=== PATIENT | female | born 1985 | race African-American/Black ===

== ENCOUNTER 2019-10-14 17:31 | Emergency (ER) | payer MEDICARE ==
[2019-10-14] MEDS ORDERED: HYDROcodone/Acetaminophen 5/325 mg Tablet ONE (18:04)
[2019-10-14] MEDS ORDERED: Ibuprofen 200 MG TAB ONE (18:54)
== END 2019-10-14 18:30 | disposition home or self-care (01) ==
LOC: ERS 17:31
DX: L03.011 Cellulitis of right finger (principal); L02.415 Cutaneous abscess of right lower limb; F32.9 Major depressive disorder, single episode, unspecified; F20.9 Schizophrenia, unspecified; F17.210 Nicotine dependence, cigarettes, uncomplicated; B20 Human immunodeficiency virus [HIV] disease
CPT/HCPCS: 10061; 87070; 87077; 87186; 87205

== ENCOUNTER 2020-02-02 21:38 | Inpatient (IN) | payer MEDICARE, OTHER ==
[~2020-02-02 21:38] MED LIST: Iopamidol-370 76% 500 ML 1 ML ONE
[2020-02-02] MEDS ORDERED: Acetaminophen 500 MG TAB ONE (22:01)
[2020-02-02] MEDS ORDERED: Ondansetron PF 4 MG/2 ML Vial ONE (22:15)
[2020-02-02] MEDS ORDERED: cefTRIAXone\\ROCEPHIN 1 GM VIAL ONE (22:27)
[2020-02-02] MEDS ORDERED: Azithromycin 500 MG VIAL ONE (22:27)
[2020-02-02 22:36] LABS: Hemoglobin 10.7 g/dL (12.0-16.0); Mean Corpuscular Hemoglobin 28.4 pg (27.0-31.0); Mean Corpuscular Volume 88.6 fL (78.0-98.0); Mean Platelet Volume 9.3 fL (7.4-10.4); Platelet Count 286 thou/uL (130-400); RBC Distribution Width 14.2 % (11.5-14.5); Red Blood Cell (RBC) Count 3.76 mill/uL (4.20-5.40); White Blood Cell (WBC) Count 9.3 thou/uL (4.8-10.8)
--- NOTE | 2020-02-02 22:41 | RAD ---
Chest one view HISTORY: Chest pain. Cough. COMPARISON: 09/22/2014. FINDINGS: Cardiac silhouette and pulmonary vasculature are unremarkable. Mediastinum is midline. No lobar consolidation or evidence of pneumothorax. IMPRESSION : No abnormalities are demonstrated.
[2020-02-02 22:42] LABS: ALT (SGPT) 23 U/L (8-55); AST (SGOT) 62 U/L (5-34); Albumin 3.5 g/dL (3.5-5.0); Alkaline Phosphatase 51 U/L (40-110); Anion Gap 14 mmol/L (10-20); BUN (Urea Nitrogen) 12 mg/dL (7.0-18.7); Bilirubin, Total 0.5 mg/dL (0.2-1.2); Calc. Creatinine Clearance 0 mL/min (70-130); Calcium 8.9 mg/dL (7.8-10.44); Carbon Dioxide 26 mmol/L (22-29); Chloride 100 mmol/L (98-107); Estimated GFR-MDRD 75; Globulin 4.5 g/dL (2.4-3.5); Glucose 87 mg/dL (70-105); Lipase 90 U/L (8-78); Potassium 3.8 mmol/L (3.5-5.1); Sodium 136 mmol/L (136-145)
[2020-02-02 22:43] LABS: Bacteria/HPF 4+ HPF (None Seen); Bilirubin Negative (Negative); Blood, Urine Trace (Negative); Clarity Turbid (Clear); Glucose, Urine (Dipstick) Normal (Negative); Ketone, Urine Negative (Negative); Leukocyte 500 Leu/uL (Negative); Nitrite 2+ (Negative); Protein, Urine (Dipstick) 50 mg/dL (Neg-Trace); RBC/HPF 0-3 HPF (0-3); Specific Gravity, Urine 1.014 (1.002-1.036); Squamous Epithelial 0-3 HPF (0-3); Urobilinogen Normal mg/dL (Less than 2); WBC/HPF Greater than 50 HPF (0-3)
[2020-02-02 22:44] LABS: Pregnancy Test - Urine (BHCG) Negative (Negative); Specific Gravity 1.014 (1.002-1.036)
[2020-02-02 22:45] LABS: Pregu Control Background? CLEAR/WHITE (CLR/WHITE); Pregu Control Bar Appear? YES (CONTROL BAR)
[2020-02-02 22:54] LABS: Band 5 % (5-11); Lymphocytes 8 % (21-51); MDiff Complete? YES; Monocytes 9 % (0-10); Neutrophil 77 % (42-75); Platelet Morphology Comment Appears Adequate; RBC Morphology Normal; Reactive Lymphocytes 1 % (0-10)
--- NOTE | 2020-02-02 22:59 | CT ---
CT abdomen and pelvis with IV contrast HISTORY: Abdomen pain. COVID positive. FINDINGS: Minimal bilateral pleural fluid at the lung bases. No focal infiltrate. The liver, spleen, kidneys, adrenal glands, and pancreas have a normal CT appearance on today's exam. Urinary bladder is decompressed. No evidence of bowel obstruction or inflammation. Postoperative changes of lower lumbar spine are debi arent. IMPRESSION : Minimal bilateral pleural fluid. No acute abdominal abnormalities are demonstrated.
[2020-02-02] MEDS ORDERED: Ibuprofen 800 MG TAB ONE (23:23)
[2020-02-02] MEDS ORDERED: Morphine 4 MG/ML VIAL ONE (23:23)
[2020-02-03] MEDS ORDERED: Dexamethasone 10 MG/ML VIAL ONE (00:33)
[2020-02-03] MEDS ORDERED: Sulfameth/Trimethoprim DS 800-160mg TAB PO SCH ×2 (00:45→09:00)
[2020-02-03] MEDS ORDERED: Midazolam HCl 2 mg/2 ml Vial ONE (01:09)
[2020-02-03] MEDS ORDERED: Norepinephrine 8 MG/0.9% NS 250 ML ONE (01:09)
[2020-02-03] MEDS ORDERED: Ondansetron PF 4 MG/2 ML Vial IVP PRN (01:12)
[2020-02-03] MEDS ORDERED: Acetaminophen 325 MG TAB PO PRN (01:12)
[2020-02-03] MEDS ORDERED: Norepinephrine 8 MG/0.9% NS 250 ML IVPB SCH (01:45)
[2020-02-03 02:42] VITALS: BMI 23.8
--- NOTE | 2020-02-03 04:02 | HP ---
This is Dionna Plaza, SITE COORDINATOR dictating a report for SILVINA CHANDLER. PRIMARY CARE PHYSICIAN: Dr. Muñiz, Dr. Armando. She reports she has not seen Dr. Armando in at least a year. HISTORY OF PRESENT ILLNESS: Ms. Gonzales is a 34-year-old female with a past medical history of HIV, who presented to the emergency room today with chest tightness, abdominal pain, decreased p.o. intake. The patient was seen here on 01/23, had a COVID test due to a temperature of a 103. Reports that she heard back several days later that it was negative. She has had some nausea and some vomiting. Her abdominal pain has been intermittent, diffuse, and crampy. She said nothing she has done improves or worsens the pain, but has not really tried much. She has a dry nonproductive cough and pain that is located on the sides of her sternum when she takes a deep breath. She reports that she has been drinking less over the last two days and really has not been able to eat much. She is a tobacco smoker. She does endorse fever and chills. Reports some rhinorrhea, pleuritic chest pain, incontinence. Emergency room evaluation showed that she had a UTI nitrate positive. Chemistry just showed an AST elevation at 62, lipase at 90. White blood cell count 9.3, hemoglobin 10.7, hematocrit is 33.3. She had a CT of her abdomen and pelvis which showed minimal bilateral pleural effusion, but no acute findings. Chest x-ray shows no abnormalities. She was admitted initially to medical for pyelonephritis, possible pneumonia, possible COVID which was retested. After she was admitted to the hospitalist service, the nurses noted that her blood pressure was trending down. She was given a total of 4 L of fluid. They decided to start a Levophed drip peripherally to see if they can get her blood pressure up and then changed her admission from medical to ICU. By the time she was transferred up to CCU, her blood pressure was back up to 109/69. She was given 4 L of fluid Bactrim p.o., dexamethasone 10 mg, morphine, azithromycin, ibuprofen, Rocephin, Zofran, and Tylenol. PAST MEDICAL HISTORY: HIV, bipolar, schizophrenia, depression, seizures. PAST SURGICAL HISTORY: Bilateral tubal in 2007. She has had a pilonidal cystectomy, surgery on her lumbar spine. SOCIAL HISTORY: She smokes about half a pack a day. Denies any alcohol or drug use. FAMILY HISTORY: Positive for hypertension. REVIEW OF SYSTEMS: The patient reports fever. She reports chills. She reports some rhinorrhea. She reports pleuritic chest pain, shortness of breath. Reports a cough. Reports diffuse abdominal pain, nausea, gagging/vomiting. Denies dysuria, but reports incontinence. No edema. Endorses some paresthesias since her back surgery in 2003. All systems are reviewed and are negative unless mentioned above or in the HPI. ALLERGIES: HALDOL, LURASIDONE, RISPERIDONE, TRAZODONE, ZIPRASIDONE. CURRENT MEDICATIONS: Hydroxyzine 10 mg p.o. once a day at night for sleep. PHYSICAL EXAMINATION: VITAL SIGNS: Blood pressure 109/69, pulse is 66, respiratory rate is 20, temperature is 97.7, pO2 sats are 98% on room air. GENERAL: The patient is alert and oriented. She is nontoxic appearing. HEAD: Atraumatic and normocephalic. EYES: Pupils are equally round and reactive. Eyelids are normal to inspection. ENT: Mouth exam is normal. Mucous membranes are moist. NECK: Normal range of motion. Trachea is midline. RESPIRATORY: Breath sounds are clear. Chest expansion is equal. CARDIOVASCULAR: Regular rate and rhythm. Heart sounds are normal. UPPER EXTREMITIES: Normal inspection. Normal range of motion. LOWER EXTREMITIES: Normal range of motion. Motor strength is normal. Pedal pulses are normal. NEURO: She is awake and alert and moving all extremities. SKIN: Warm and dry. Normal in color. PSYCH: She has a flat affect, but she is awake and alert. ASSESSMENT AND PLAN: 1. Sepsis, likely source pyelonephritis. COVID test has been redone. The first one she had done on the 10th about 10 days ago came back negative. She has a history of being HIV positive, has not been on her medication for over a year, has not seen Dr. Armando in over a year. ED physician was worried about possible pneumonia, although it was negative on the x-ray. After fluid resuscitation, it might present itself. She was hypotensive in the emergency room. She received 4 L of normal saline and blood pressure rebounded quite nicely. She was given azithromycin, Rocephin, and Bactrim in the emergency room and we will continue this. 2. History of HIV and not been on her medications. We have asked Dr. Armando to consult for the HIV infection and also possible COVID. 3. History of schizophrenia, depression, is not on any medication. She would be a candidate for an outpatient [facility] screening. 4. Deep venous thrombosis and gastrointestinal prophylaxis started. 5. Dr. Chandler will see the patient as well. 6. Case discussed in length with Dr. Chandler, who agrees with plan. 7. Urine culture and blood cultures have been obtained, see #1. 8. Smoking cessation counseling offered. 9. Hospital course depended on clinical findings. Job ID: [id number]
[2020-02-03 04:57] LABS: Hemoglobin 8.9 g/dL (12.0-16.0); Mean Corpuscular HGB CONC 31.5 g/dL (32.0-36.0); Mean Corpuscular Hemoglobin 27.8 pg (27.0-31.0); Mean Platelet Volume 9.9 fL (7.4-10.4); Platelet Count 252 thou/uL (130-400); White Blood Cell (WBC) Count 7.1 thou/uL (4.8-10.8)
[2020-02-03 05:22] LABS: Band 7 % (5-11); Lymphocytes 7 % (21-51); MDiff Complete? YES; Monocytes 5 % (0-10); Neutrophil 81 % (42-75); Platelet Morphology Comment Appears Adequate
[2020-02-03] MEDS: Sodium Chloride 0.9% 1,000 ML IV SCH ×3 (05:35→20:43)
[2020-02-03 06:08] LABS: ALT (SGPT) 16 U/L (8-55); AST (SGOT) 37 U/L (5-34); Albumin 2.7 g/dL (3.5-5.0); Alkaline Phosphatase 42 U/L (40-110); Anion Gap 12 mmol/L (10-20); BUN (Urea Nitrogen) 11 mg/dL (7.0-18.7); Bilirubin, Total 0.5 mg/dL (0.2-1.2); Calc. Creatinine Clearance 111 mL/min (70-130); Calcium 7.5 mg/dL (7.8-10.44); Carbon Dioxide 19 mmol/L (22-29); Chloride 111 mmol/L (98-107); Estimated GFR-MDRD Greater than 90; Globulin 3.2 g/dL (2.4-3.5); Glucose 109 mg/dL (70-105); Potassium 3.1 mmol/L (3.5-5.1); Protein, Total 5.9 g/dL (6.0-8.3); Sodium 139 mmol/L (136-145)
[2020-02-03] MEDS ORDERED: MERREM IVPB PRN (08:02)
[2020-02-03] MEDS ORDERED: VANCOMYCIN IVPB PRN (08:02)
--- NOTE | 2020-02-03 08:10 | CON ---
DATE OF CONSULTATION: 02/03/2020 REASON FOR CONSULTATION: Sepsis. HISTORY OF PRESENT ILLNESS: The patient is a 34-year-old female referred to our group by the hospitalist for evaluation of sepsis since she is requiring Levophed. She was brought to the emergency room last night with a 2 week complaint of chest tightness, nausea, vomiting, and diarrhea. She was found to have a urinary tract infection. She was initially going to be sent to the floor, but because of marginal blood pressure, she has been sent here, is on a low-dose Levophed drip. PAST MEDICAL HISTORY: 1. HIV, she has been off her medications for at least a year. 2. Bipolar disorder. 3. Schizophrenia. 4. Depression. 5. Seizure. PAST SURGICAL HISTORY: 1. Bilateral tubal ligation. 2. Pilonidal cyst removal. 3. Lumbar spine surgery. SOCIAL HISTORY: Smokes about half pack per day. Denies alcohol or illicit drug use. FAMILY MEDICAL HISTORY: Hypertension. MEDICATIONS: Prior to admission, none. ALLERGIES: HALDOL, LURASIDONE, RISPERIDONE, TRAZODONE, ZIPRASIDONE. REVIEW OF SYSTEMS: The patient reports subjective fever, chills, shortness of breath, cough. It should be noted, had negative COVID test twice in the last 2 weeks including last night. PHYSICAL EXAMINATION: VITAL SIGNS: Temperature 98.1, pulse 54, blood pressure 105/63, O2 saturation 99%. GENERAL: She has a macular rash along her hairline along the folds of her nose and around her lips. HEENT: Also remarkable for a thrush type exudate on her tongue. NECK: Without palpable adenopathy or JVD. LUNGS: Clear without wheezing or rhonchi. CARDIAC: Rhythm is generally sinus but does see episodes of sinus bradycardia. ABDOMEN: Diffuse mild tenderness without rebound. No hepatosplenomegaly. EXTREMITIES: No clubbing, cyanosis, or edema. NEUROLOGIC: Grossly intact throughout. LABORATORY DATA: White blood cell count 7.1, hematocrit 28.2, and platelet count 252, with 81% neutrophils, 7% bands. Sodium 139, potassium 3.1, chloride 111, CO2 of 19, BUN 11, creatinine 0.7, glucose 109. Ferritin 1100. AST 37, ALT 16. Urinalysis showed greater than 50 white blood cells. COVID test was negative. Chest x-ray showed no mass, effusion, or infiltrate. ASSESSMENT: 1. Urosepsis. 2. HIV-unknown severity. 3. Abdominal symptoms suggestive of possible gastroenteritis. PLAN: The patient basically needs to be hydrated. I would wean the Levophed drip off quickly. She has been placed on azithromycin, ceftriaxone, and Bactrim. Dr. Armando has been consulted for antibiotics concern. I will add Protonix for GI symptoms. Once the patient is off Levophed, she can be transferred to the floor. Job ID: [id number]
[2020-02-03] MEDS ORDERED: Prevnar 13-Val Conj/PF 0.5 ML SYRINGE IM ONE (09:00)
[2020-02-03] MEDS: Senokot S 8.6-50 MG TAB PO SCH ×2 (09:52→20:42)
[2020-02-03] MEDS: MEROPENEM 1 GM/50 ML 1 GM in Premix Bag 1 BAG IVPB SCH ×2 (09:53→17:03)
[2020-02-03] MEDS: Pantoprazole 40 MG VIAL IVP SCH (09:53)
[2020-02-03] MEDS: Vancomycin HCl 1.25 GM in Sodium Chloride 0.9% 250 ML 250 ML IVPB SCH ×2 (09:53→17:02)
--- NOTE | 2020-02-03 13:47 | CON ---
DATE OF CONSULTATION: 02/03/2020 REASON FOR CONSULTATION: Abdominal pain, fever, and chest pain. HISTORY OF PRESENT ILLNESS: A 34-year-old known to me from multiple prior visits, both here as well as in the clinic, who has a longstanding history of advanced immunosuppression associated with HIV infection. I think she has schizophrenia or schizoaffective disorder. She from time to time will stop taking her medications for HIV and deteriorate her immune function and developed illness. The last time I had seen her was about a year ago and she had CD4 cell count, which has markedly improved to 237 on Biktarvy, but I have not seen her since. She had been living with her boyfriend and she had not been taking her medications. She denied having used any cocaine or methamphetamine or other drug. No alcoholic beverage use. She does smoke from time to time intermittently. So, over the past few weeks, she started feeling ill and went to live with her parents, still not taking any of her medications and presented to the emergency room on the because of chest tightness, abdominal pain, some nausea, and some vomiting. No bleeding. No headaches. No visual symptoms, sore throat, odynophagia, or dysphagia. No back pain. Never had dysuria or hematuria. Had some diarrhea. No joint symptoms or neurological symptoms. MEDICAL HISTORY: 1. Longstanding advanced HIV infection with erratic adherence to antiretroviral therapy. The last time I checked was in December last year and it was 237, which is probably one of the highest she ever had. She is doing quite well then, but her social and life circumstances will change from time to time and she will stop taking medication, disappeared from clinic and get sick just like today. 2. She has had a history of back surgery. 3. Tubal ligation. SOCIAL HISTORY: Smokes intermittently. No drug use. Family is in town and she will sometimes live with her boyfriend and sometimes live with family. ALLERGIES: HALDOL, LURASIDONE WITH RASH, RISPERDAL WITH RASH, TRAZODONE WITH HIVES, AND ZIPRASIDONE WITH RASH. REPORTED MEDICATIONS: Hydroxyzine. PHYSICAL EXAMINATION: VITAL SIGNS: Temperature 97.9 and in the emergency room she was 103, O2 saturations were 97 on room air in the emergency room, BP 98/59, and pulse 104. SKIN: Not remarkable. No lymphadenopathy. HEENT: Ocular movements conjugate. Oral cavity normal. No thrush. NECK: Supple. No jugular vein distention. LUNGS: Symmetric, clear breath sounds. HEART: S1 and S2. Regular rate without murmurs. No S3 or S4. ABDOMEN: Bzcz-in-uwgertwawq tender in the left lower quadrant and right upper quadrant. This is on percussion and on palpation. NEUROLOGIC: She is awake. She has a very flat affect, which tells me that she has not been taking her psychiatric medications, but when I last saw her, she was very bright and appeared completely normal, that was about a year ago. EXTREMITIES: She moves extremities equally. Plantar responses are flexor. LABORATORY DATA: White cell count now is 9.3 and 7.1, hemoglobin 8.9, MCV 88, platelets 252, and 81% neutrophils. D-dimer 2.2. Sodium 139 and creatinine 0.73. Ferritin 1100. AST 37, ALT 16, albumin 2.7. Folate 4.7. She had an abdomen and pelvis CT scan, minimal bilateral pleural fluid, no acute abdominal abnormalities demonstrated. This was an IV contrast study. She had a COVID test, which was negative. A chest x-ray with no abnormalities demonstrated. ASSESSMENT: Longstanding human immunodeficiency virus infection with advanced immunosuppression until last time when I saw her, CD4 had peaked at 237, which is the highest she has had in a long time. Now, she has had deterioration of her psychiatric condition, probably due to lack of adherence to her medication plus her social circumstances. She had been living with her boyfriend, which in the past I have noted that when anytime she is with him she kind of decompensates. Now, she has had interruption of antiretroviral therapy and I expect her CD4 cell count to be much lower than last year. The estimate for CD4 cell count now is less than 200. She has an abnormal urinalysis, so the differential diagnosis is a urinary tract infection or an opportunistic infectious process including possibility of Clostridium difficile colitis, cytomegalovirus, histoplasmosis, Mycobacterium avium complex infection. Pneumocystis appears to be less likely. We will start antiretroviral therapy. Continue antimicrobials as currently. Monitor blood cultures. Await on the results of the CD4 cell count. The viral load is going to be high as expected. Submit assays for the opportunistic processes mentioned. Job ID: [id number]
[2020-02-03] MEDS ORDERED: Sodium Chloride 0.9% 1,000 ML IV SCH (16:45)
--- NOTE | 2020-02-03 18:14 | PDOC.EVN ---
Event Note - Event Note Event Note: inherited patient this morning. feeling well and has no complaints. Borderline hypotensive after weaned off levophed. bolus NS, escalated antibiotics for complicated UTI in critically ill to cover MRSA and ESBL pending cultures. ID onboard
[2020-02-03] MEDS: Raltegravir Potassium 400 MG TAB PO SCH (20:42)
[2020-02-03] MEDS ORDERED: Azithromycin 500 MG in Sodium Chloride 0.9% 250 ML 250 ML IVPB SCH (22:00)
[2020-02-03] MEDS ORDERED: cefTRIAXone\\ROCEPHIN 2 GM in Sodium Chloride 0.9% 100 ML IVPB SCH (23:00)
[2020-02-04] MEDS: Vancomycin HCl 1.25 GM in Sodium Chloride 0.9% 250 ML 250 ML IVPB SCH ×2 (01:45→10:56)
[2020-02-04] MEDS: MEROPENEM 1 GM/50 ML 1 GM in Premix Bag 1 BAG IVPB SCH ×3 (01:45→19:40)
[2020-02-04 04:09] LABS: Anion Gap 9 mmol/L (10-20); BUN (Urea Nitrogen) 8 mg/dL (7.0-18.7); Calc. Creatinine Clearance 131 mL/min (70-130); Calcium 8.1 mg/dL (7.8-10.44); Carbon Dioxide 18 mmol/L (22-29); Chloride 116 mmol/L (98-107); Estimated GFR-MDRD Greater than 90; Glucose 147 mg/dL (70-105); Magnesium 1.7 mg/dL (1.6-2.6); Potassium 3.7 mmol/L (3.5-5.1); Sodium 139 mmol/L (136-145)
--- NOTE | 2020-02-04 07:56 | PRG ---
DATE OF SERVICE: 02/04/2020 SUBJECTIVE: She was transferred from the ICU to the [facility] yesterday. Has done well overnight. OBJECTIVE: VITAL SIGNS: Temperature 96.6, pulse generally in the 40s to 50s, blood pressure 120/70, O2 saturation 100%. HEENT: Unremarkable except for the fungal appearing areas on the skin. NECK: No adenopathy or JVD. CHEST: Clear. CARDIAC: S1, S2. Slightly bradycardic. ABDOMEN: Soft. EXTREMITIES: No edema. LABORATORY DATA: Sodium 139, potassium 3.7, chloride 116, CO2 of 18, BUN 8, creatinine 0.6, glucose 147. Cultures, urine is growing out E coli which is sensitive to everything except for ampicillin. ASSESSMENT: 1. Urosepsis. 2. HIV. PLAN: Antimicrobial coverage will be dictated by Dr. Armando. The bradycardia is somewhat concerning and may need to be further addressed by Cardiology. The patient is stable for transfer to telemetry. Job ID: [id number]
[2020-02-04 07:57] LABS: Phosphorus 2.1 mg/dL (2.3-4.7)
[2020-02-04] MEDS: Senokot S 8.6-50 MG TAB PO SCH ×2 (08:39→20:21)
[2020-02-04] MEDS: Pantoprazole 40 MG VIAL IVP SCH (08:39)
[2020-02-04] MEDS: Sodium Chloride 0.9% 1,000 ML IV SCH ×3 (08:39→21:57)
[2020-02-04] MEDS: Emtricitabine/Tenofovir 200-300 MG TAB PO SCH (08:40)
[2020-02-04] MEDS: Raltegravir Potassium 400 MG TAB PO SCH ×2 (08:40→20:21)
[2020-02-04 10:22] LABS: Vancomycin, Trough 17.4 ug/mL
[2020-02-04 17:37] LABS: Absolute CD4 16 /uL (359-1519); Lymphocytes/Gated Cell Count 0.8 x10E3/uL (0.7-3.1); Total Lymphocyte 9 % (Not Estab.)
--- NOTE | 2020-02-04 22:06 | PDOC.HOSPP ---
- Subjective Encounter Date: 02/04/20 Encounter Time: 08:00 Subjective: no overnight events. feeling well and has no complaints. UCx and BCx growing E.coli. - Objective Vital Signs & Weight: Vital Signs (12 hours) Temp Pulse Resp BP BP Pulse Ox 02/04/20 20:00 100 02/04/20 19:40 97.6 F 62 17 104/69 100 02/04/20 15:22 97.4 F L 56 L 16 120/76 100 02/04/20 14:00 83 18 100/60 100 02/04/20 13:04 78 16 105/63 100 02/04/20 12:00 41 L 18 107/62 100 02/04/20 11:21 97.6 F 02/04/20 11:00 41 L 16 113/65 100 Weight Admit Weight 143 lb Weight 143 lb 4.807 oz Most Recent Monitor Data Heart Rate from ECG 41 NIBP 113/69 NIBP BP-Mean 83 Respiration from ECG 15 SpO2 100 I&O: 02/03/20 02/04/20 02/05/20 06:59 06:59 06:59 Intake Total 211.2 2850 Output Total 800 1350 Balance -588.8 1500 Result Diagrams: 02/03/20 03:22 02/04/20 03:25 Hospitalist ROS - Review of Systems Constitutional: denies: fever, chills, sweats Respiratory: denies: cough, dry, shortness of breath Cardiovascular: denies: chest pain, palpitations, orthopnea Gastrointestinal: denies: nausea, vomiting, abdominal pain Genitourinary: denies: dysuria, incontinence, hematuria - Medication Medications: Active Medications Generic Name Dose Route Start Last Admin Trade Name Freq PRN Reason Stop Dose Admin Acetaminophen 650 mg 02/03/20 01:12 02/04/20 19:44 Tylenol PO 650 mg Q4H PRN Administration Headache/Fever/Mild Pain (1-3) Emtricitabine/Tenofovir 1 tab 02/04/20 09:00 02/04/20 08:40 Truvada PO 1 tab DAILY SANCHEZ Administration Sodium Chloride 1,000 mls @ 100 mls/hr 02/03/20 01:15 02/04/20 21:57 Normal Saline 0.9% IV 1,000 mls .Q10H SANCHEZ Administration Pantoprazole Sodium 40 mg 02/03/20 09:00 02/04/20 08:39 Protonix IVP 40 mg DAILY SANCHEZ Administration Raltegravir 400 mg 02/03/20 21:00 02/04/20 20:21 Isentress PO 400 mg BID SANCHEZ Administration Senna/Docusate Sodium 2 tab 02/03/20 09:00 02/04/20 20:21 Senokot S PO Not Given BID SANCHEZ - Exam General Appearance: NAD, awake alert Neck: no JVD Heart: no murmur, no gallops, no rubs Heart - other findings: regular rhythm, telemetry showing mild bradycardia with occasional PACS Respiratory: CTAB, no wheezes, no rales, no ronchi Gastrointestinal: soft, non-tender, non-distended, normal bowel sounds Extremities: no edema Psychiatric: normal affect, normal behavior, A&O x 3 Hosp A/P - Plan #AIDS -due to nonadherence -ID started antiretroviral; will follow as outpatient #complicated e.coli UTI #E.coli bacteremia susceptible to ceftriaxone, changed from meropenem considering prompt response to antibiotics, will likely require 7 days total ABx ; pending ID input #?asymptomatic bradycardia meds reviewed; telemetry reviewed HR mostly 60-80s with no conduction blocks, occasional PACS EKG; continue to monitor; if continues to be bradycardic, will benefit from further workup after acute event is addressed Full code MATILDEOS: 1 night
[2020-02-05] MEDS: Sodium Chloride 0.9% 1,000 ML IV SCH (03:25)
[2020-02-05 07:43] VITALS: TEMP 97.7
[2020-02-05] MEDS ORDERED: cefTRIAXone\\ROCEPHIN 1 GM in Sodium Chloride 0.9% 100 ML IVPB SCH (09:00)
[2020-02-05] MEDS ORDERED: Folic Acid/Vit B Comp W-C PO SCH (09:00)
[2020-02-05] MEDS: Raltegravir Potassium 400 MG TAB PO SCH (09:10)
[2020-02-05] MEDS: Senokot S 8.6-50 MG TAB PO SCH (09:10)
[2020-02-05] MEDS: Emtricitabine/Tenofovir 200-300 MG TAB PO SCH (09:10)
[2020-02-05] MEDS: Pantoprazole 40 MG VIAL IVP SCH (09:11)
[2020-02-05 10:25] VITALS: BP 101/67
[2020-02-05] MEDS ORDERED: Sodium Chloride 0.9% 1,000 ML IV SCH (10:30)
--- NOTE | 2020-02-05 13:45 | PQF ---
CLINICAL DOCUMENTATION CLARIFICATION FORM: Dear Dr. Eulalio Schroeder Date: 02-05-20 Please exercise your independent, professional judgment in responding to the clarification form. Clinical indicators are provided on the bottom of this form for your review. Please check appropriate box(es): Conflicting documentation was noted in the Medical Record; please clarify if patient is being treated/monitored for: [ ] Sepsis due to complicated E.Coli UTI [ ] Sepsis with septic shock due to complicated E.Coli UTI [ ] Bacteremia without sepsis [ ] Other diagnosis [ x ] Unable to determine For continuity of documentation, please document condition throughout progress notes and discharge summary. Thank You. To be completed by CDI/Coding staff for physician review: CLINICAL INDICATORS - SIGNS / SYMPTOMS/ LABS / RESULTS AND LOCATION IN EMR ED: Acute pyelonephritis; HIV; possible COVID-19; sepsis *Dry cough; diarrhea; loss of taste; loss of appetite; HIV positive *P 63-72 *RR 15-23 *T 103 oral *BP 98/59; 95/55; 88/51; 91/49; 90/53; 85/52; 78/Unknown - manual; 88/49; 109/69 02-02 H&P ([facility]) *sepsis - source pyelonephritis *HIV positive 02-02 Event Note (Alexandre): borderline hypotensive after weaned off Levophed. Bolus NS, escalated antibiotics for complicated UTI 02-03 PN ([facility]): Urosepsis RISK FACTORS / RESULTS AND LOCATION IN EMR ED: *BP 98/59; 95/55; 88/51; 91/49; 90/53; 85/52; 78/Unknown - manual; 88/49; 109/69 02-03 PN ([facility]): AIDS; e. coli UTI TREATMENT / RESULTS AND LOCATION IN EMR 02/02 ED: Norepinephrine IV; 4L NS MAR: 02/02-02/03 Meropenem IV AND Vancomycin IV 02/04 Ceftriaxone IV 02-03 [facility] ; E. coli bacteremia susceptible to ceftriaxone, changed from meropenem. Considering prompt response to antibiotics, will likely require 7 days total ABx CDS Signature: Bethany Cortez RN, CCDS Phone #: [phone] Date: This is a permanent part of the Medical Record [facility]
--- NOTE | 2020-02-05 17:25 | DIS ---
DATE OF ADMISSION: 02/03/2020 DATE OF DISCHARGE: 02/05/2020 HOSPITAL COURSE: Ms. Gonzales is a 34-year-old female with a medical history of HIV, un-adherent to medications; bipolar; schizophrenia; depression; and seizures; presented with abdominal pain, decreased oral intake, and acute fever. She was diagnosed with pyelonephritis. She was initially treated with broad spectrum antibiotics and improved promptly. After speciation resulting in E coli both in the urine and in the blood, the patient was transitioned to ceftriaxone based on susceptibilities and the following day was transitioned into oral medications, pending discharge. In addition, Infectious Disease was consulted in regard to her HIV treatment. The patient was found to have a very low CD4 count. Infectious Disease started her on Truvada and raltegravir and reinforced followup with Dr. Armando on an outpatient basis. On the day of discharge, she was hemodynamically stable with no complaints. PHYSICAL EXAMINATION: VITAL SIGNS: Blood pressure 101/67, pulse 71, respiratory rate 20, and oxygen saturation 100% on room air. GENERAL: Lying comfortably in bed. Awake and alert, emaciated. HEENT: Normocephalic and atraumatic. No periauricular, submandibular, anterior, or posterior neck lymphadenopathy. No pharyngitis. CARDIAC: Regular rate and rhythm. No murmurs, gallops, or rubs. LUNGS: Clear to auscultation bilaterally. No wheezing, rales, or rhonchi. ABDOMEN: Soft, nontender, nondistended. Normal bowel sounds. No flank pain. No costovertebral tenderness. EXTREMITIES: No edema. PSYCHIATRIC: Proper mood and affect. Alert and oriented x3. MEDICATION LIST: New medications: 1. Levofloxacin 750 mg p.o. daily for five more days, pending appointment with Infectious Disease. 2. Truvada one tablet p.o. daily. 3. Raltegravir 400 mg p.o. b.i.d. 4. Multivitamin one tablet p.o. daily. 5. Senna and docusate p.o. b.i.d. Continued medications: The patient was nonadherent, so no continued medications, modified medications, or discontinued medications. Job ID: [id number]
[2020-02-05 22:38] LABS: CMV DNA-PCR Test Negative (Negative)
== END 2020-02-05 12:42 | disposition home or self-care (01) | DRG 977 ==
LOC: ERS 21:38 → CCU 02-03 01:16 → IMCU/EMU 02-03 21:09 → T4-A 02-04 15:14
PROVIDERS: ADMIT Internal Medicine Infectious Disease; ATTEND Internal Medicine Infectious Disease
DX: B20 Human immunodeficiency virus [HIV] disease (principal); N10 Acute pyelonephritis; F31.9 Bipolar disorder, unspecified; F20.9 Schizophrenia, unspecified; F17.210 Nicotine dependence, cigarettes, uncomplicated; G40.909 Epilepsy, unspecified, not intractable, without status epilepticus; B96.20 Unspecified Escherichia coli [E. coli] as the cause of diseases classified elsewhere; Z20.828 Contact with and (suspected) exposure to other viral communicable diseases; Z98.51 Tubal ligation status; Z88.8 Allergy status to other drugs, medicaments and biological substances; Z88.1 Allergy status to other antibiotic agents; Z88.6 Allergy status to analgesic agent; Z91.14 Patient's other noncompliance with medication regimen
CPT/HCPCS: 36415; 71045; 74177; 80048; 80053; 80202; 81003; 81015; 81025; 82607; 82728; 82746; 83605; 83690; 83735; 84100; 84484; 85025; 85048; 85379; 86361; 87040; 87077; 87086; 87116; 87149; 87186; 87206; 87385; 87449; 87497; 90471; 90670; 93005; 93010; 96365; 96367; 96375; C9113; G0009; J0456; J0696; J1100; J2185; J2250; J2270; J2405; J3370; J3490; J7050; Q9967; U0002

== ENCOUNTER 2020-04-12 03:09 | Emergency (ER) | payer MEDICARE, OTHER ==
[2020-04-12 03:53] LABS: #Basophils 0.1 thou/uL (0.0-0.2); #Eosinphils 0.5 thou/uL (0.0-0.7); #Lymphocytes 1.9 thou/uL (1.20-3.40); #Monocytes 0.4 thou/uL (0.11-0.59); #Neutrophils 1.7 thou/uL (1.40-6.50); %Basophils 1.3 % (0.0-1.0); %Eosinophils 10.7 % (0.0-10.0); %Lymphocytes 42.3 % (21.0-51.0); %Monocytes 7.8 % (0.0-10.0); %Neutrophils 37.9 % (42.0-75.0); Hemoglobin 12.5 g/dL (12.0-16.0); Mean Corpuscular HGB CONC 33.2 g/dL (32.0-36.0); Mean Corpuscular Hemoglobin 30.2 pg (27.0-31.0); Platelet Count 179 thou/uL (130-400); RBC Distribution Width 14.4 % (11.5-14.5); Red Blood Cell (RBC) Count 4.12 mill/uL (4.20-5.40); White Blood Cell (WBC) Count 4.6 thou/uL (4.8-10.8)
[2020-04-12 04:15] LABS: ALT (SGPT) 16 U/L (8-55); AST (SGOT) 15 U/L (5-34); Albumin 3.7 g/dL (3.5-5.0); Alkaline Phosphatase 65 U/L (40-110); Anion Gap 14 mmol/L (10-20); BUN (Urea Nitrogen) 16 mg/dL (7.0-18.7); Bilirubin, Total 0.2 mg/dL (0.2-1.2); Calc. Creatinine Clearance 0 mL/min (70-130); Calcium 8.5 mg/dL (7.8-10.44); Carbon Dioxide 20 mmol/L (22-29); Chloride 108 mmol/L (98-107); Estimated GFR-MDRD Greater than 90; Globulin 3.5 g/dL (2.4-3.5); Glucose 100 mg/dL (70-105); Potassium 3.9 mmol/L (3.5-5.1); Protein, Total 7.2 g/dL (6.0-8.3); Sodium 138 mmol/L (136-145)
--- NOTE | 2020-04-12 08:26 | RAD ---
SINGLE VIEW CHEST: HISTORY: Fever. COMPARISON: 02/02/2020 FINDINGS: Single view of the chest show normal sized cardiomediastinal silhouette. There is no evidence of cons olidation, mass, or pleural effusion. The bones are unremarkable. IMPRESSION: No evidence of acute cardiopulmonary disease. POS: [facility]
== END 2020-04-12 04:30 | disposition home or self-care (01) ==
LOC: ERS 03:09
DX: R07.9 Chest pain, unspecified (principal); B20 Human immunodeficiency virus [HIV] disease; F32.9 Major depressive disorder, single episode, unspecified; F20.9 Schizophrenia, unspecified; F17.210 Nicotine dependence, cigarettes, uncomplicated; Z79.899 Other long term (current) drug therapy
CPT/HCPCS: 36415; 71045; 80053; 84484; 85025; 93005

== ENCOUNTER 2020-07-28 02:31 | Emergency (ER) | payer MEDICARE ==
[2020-07-28] MEDS ORDERED: Orphenadrine Citrate 60 MG/2 ML VIAL IM SCH (03:15)
== END 2020-07-28 04:35 | disposition home or self-care (01) ==
LOC: ERS 02:31
DX: R07.9 Chest pain, unspecified (principal); M54.10 Radiculopathy, site unspecified; M54.2 Cervicalgia; R20.0 Anesthesia of skin; F17.210 Nicotine dependence, cigarettes, uncomplicated; Z21 Asymptomatic human immunodeficiency virus [HIV] infection status; Z79.899 Other long term (current) drug therapy
CPT/HCPCS: 96372; 99283; J2360

== ENCOUNTER 2020-11-26 17:29 | Emergency (ER) | payer MEDICARE ==
[2020-11-26] MEDS ORDERED: Ketorolac Tromethamine 30 MG/ML VIAL ONE (17:48)
[2020-11-26 18:51] LABS: Bilirubin Negative (Negative); Blood, Urine Negative (Negative); Clarity Clear (Clear); Glucose, Urine (Dipstick) Normal (Negative); Ketone, Urine Negative (Negative); Leukocyte Negative Leu/uL (Negative); Nitrite Negative (Negative); Protein, Urine (Dipstick) Negative (Neg-Trace); Specific Gravity, Urine 1.011 (1.002-1.036); Urobilinogen Normal mg/dL (Less than 2); pH, Urine 6.5 (5.0-9.0)
[2020-11-26 18:53] LABS: Pregnancy Test - Urine (BHCG) Negative (Negative); Pregu Control Bar Appear? YES (CONTROL BAR); Specific Gravity 1.011 (1.002-1.036)
[2020-11-26 18:54] LABS: Pregu Control Background? CLEAR/WHITE (CLR/WHITE)
== END 2020-11-26 19:40 | disposition home or self-care (01) ==
LOC: ERS 17:29
DX: M54.41 Lumbago with sciatica, right side (principal); Z21 Asymptomatic human immunodeficiency virus [HIV] infection status; F17.210 Nicotine dependence, cigarettes, uncomplicated; Z79.899 Other long term (current) drug therapy
CPT/HCPCS: 81003; 81025; 96372; 99283; J1885

== ENCOUNTER 2020-12-28 11:55 | Emergency (ER) | payer MEDICARE ==
[2020-12-28] MEDS ORDERED: Iopamidol-370 76% 500 ML 1 ML ONE (13:53)
[2020-12-28] MEDS ORDERED: Aluminum & Magnesium Hydroxide 60 ML, Lidocaine 2% Viscous Solution 30 ML, diphenhydrAM... SSW SCH (14:45)
[2020-12-28] MEDS ORDERED: Aluminum & Magnesium Hydroxide 60 ML, Lidocaine 2% Viscous Solution 30 ML, diphenhydrAM... SSP SCH (14:45)
[2020-12-28 15:56] LABS: #Eosinphils 0.8 thou/uL (0.0-0.7); #Lymphocytes 1.2 thou/uL (1.20-3.40); #Monocytes 0.2 thou/uL (0.11-0.59); #Neutrophils 2.5 thou/uL (1.40-6.50); %Basophils 0.3 % (0.0-1.0); %Eosinophils 16.7 % (0.0-10.0); %Monocytes 4.9 % (0.0-10.0); %Neutrophils 53.1 % (42.0-75.0); Hemoglobin 12.8 g/dL (12.0-16.0); Mean Corpuscular HGB CONC 33.3 g/dL (32.0-36.0); Mean Corpuscular Volume 90.2 fL (78.0-98.0); Mean Platelet Volume 8.5 fL (7.4-10.4); Platelet Count 270 thou/uL (130-400); Red Blood Cell (RBC) Count 4.25 mill/uL (4.20-5.40); White Blood Cell (WBC) Count 4.8 thou/uL (4.8-10.8)
[2020-12-28 16:13] LABS: BHCG - Serum Negative (NEGATIVE); Pregs Control Background? CLEAR/WHITE (CLR/WHITE); Pregs Control Bar Appear? YES (CONTROL BAR)
[2020-12-28 16:16] LABS: ALT (SGPT) 7 U/L (8-55); AST (SGOT) 13 U/L (5-34); Albumin 4.3 g/dL (3.5-5.0); Alkaline Phosphatase 71 U/L (40-110); Anion Gap 14 mmol/L (10-20); BUN (Urea Nitrogen) 9 mg/dL (7.0-18.7); Bilirubin, Total 0.3 mg/dL (0.2-1.2); Calc. Creatinine Clearance 0 mL/min (70-130); Calcium 9.8 mg/dL (7.8-10.44); Carbon Dioxide 25 mmol/L (22-29); Chloride 105 mmol/L (98-107); Globulin 4.4 g/dL (2.4-3.5); Glucose 82 mg/dL (70-105); Potassium 3.9 mmol/L (3.5-5.1); Protein, Total 8.7 g/dL (6.0-8.3); Sodium 140 mmol/L (136-145)
[2020-12-28] MEDS ORDERED: Acetaminophen 500 MG TAB ONE (17:12)
== END 2020-12-28 18:25 | disposition home or self-care (01) ==
LOC: ERS 11:55
DX: K12.0 Recurrent oral aphthae (principal); R20.0 Anesthesia of skin; Z21 Asymptomatic human immunodeficiency virus [HIV] infection status; F17.210 Nicotine dependence, cigarettes, uncomplicated; Z79.899 Other long term (current) drug therapy
CPT/HCPCS: 70491; 80053; 84703; 85025; Q0163; Q9967

== ENCOUNTER 2021-02-22 12:17 | Emergency (ER) | payer MEDICARE ==
[2021-02-22] MEDS ORDERED: HYDROcodone/Acetaminophen 10/325 mg Tablet ONE (14:42)
== END 2021-02-22 14:53 | disposition home or self-care (01) ==
LOC: ERS 12:17
DX: G89.29 Other chronic pain (principal); Z21 Asymptomatic human immunodeficiency virus [HIV] infection status; F17.210 Nicotine dependence, cigarettes, uncomplicated
CPT/HCPCS: 99284

== ENCOUNTER 2021-05-11 09:43 | Emergency (ER) | payer MEDICARE ==
[2021-05-11 14:45] LABS: SARS-CoV-2 PCR by NAA Not Detected (NotDetected)
== END 2021-05-11 10:54 | disposition home or self-care (01) ==
LOC: ERS 09:43
DX: J18.9 Pneumonia, unspecified organism (principal); F17.210 Nicotine dependence, cigarettes, uncomplicated; B20 Human immunodeficiency virus [HIV] disease; Z20.822 Contact with and (suspected) exposure to COVID-19
CPT/HCPCS: 71045; 99283; U0003; U0005

== ENCOUNTER 2021-06-11 07:48 | Emergency (ER) | payer MEDICARE ==
[2021-06-11 08:24] LABS: #Eosinphils 0.3 thou/uL (0.0-0.7); #Lymphocytes 1.1 thou/uL (1.20-3.40); #Monocytes 0.3 thou/uL (0.11-0.59); #Neutrophils 1.9 thou/uL (1.40-6.50); %Basophils 0.4 % (0.0-1.0); %Eosinophils 9.3 % (0.0-10.0); %Lymphocytes 30.4 % (21.0-51.0); %Monocytes 7.7 % (0.0-10.0); %Neutrophils 52.2 % (42.0-75.0); Hemoglobin 12.2 g/dL (12.0-16.0); Mean Corpuscular HGB CONC 32.6 g/dL (32.0-36.0); Mean Corpuscular Hemoglobin 29.7 pg (27.0-31.0); Mean Platelet Volume 8.6 fL (7.4-10.4); Platelet Count 201 thou/uL (130-400); RBC Distribution Width 14.8 % (11.5-14.5); Red Blood Cell (RBC) Count 4.12 mill/uL (4.20-5.40); White Blood Cell (WBC) Count 3.6 thou/uL (4.8-10.8)
[2021-06-11 08:34] LABS: Bilirubin Negative (Negative); Blood, Urine Negative (Negative); Clarity Clear (Clear); Glucose, Urine (Dipstick) Normal (Negative); Ketone, Urine Negative (Negative); Leukocyte Negative Leu/uL (Negative); Nitrite Negative (Negative); Protein, Urine (Dipstick) 10 mg/dL (Neg-Trace); Specific Gravity, Urine 1.036 (1.002-1.036)
[2021-06-11 08:41] LABS: Pregnancy Test - Urine (BHCG) Negative (Negative); Pregu Control Background? CLEAR/WHITE (CLR/WHITE); Pregu Control Bar Appear? YES (CONTROL BAR); Specific Gravity 1.036 (1.002-1.036)
[2021-06-11 08:46] LABS: Acetaminophen Less than 6.0 mcg/mL (10.0-30.0); Alcohol Less than 10 mg/dL (Less than 10); Salicylate Less than 8.0 mg/dL (15.0-30.0)
[2021-06-11 08:47] LABS: ALT (SGPT) 8 U/L (8-55); AST (SGOT) 14 U/L (5-34); Albumin 3.9 g/dL (3.5-5.0); Alkaline Phosphatase 63 U/L (40-110); Anion Gap 11 mmol/L (10-20); BUN (Urea Nitrogen) 17 mg/dL (7.0-18.7); Bilirubin, Total 0.3 mg/dL (0.2-1.2); Calc. Creatinine Clearance 0 mL/min (70-130); Calcium 9.6 mg/dL (7.8-10.44); Carbon Dioxide 24 mmol/L (22-29); Chloride 109 mmol/L (98-107); Globulin 3.9 g/dL (2.4-3.5); Glucose 92 mg/dL (70-105); Potassium 3.4 mmol/L (3.5-5.1); Protein, Total 7.8 g/dL (6.0-8.3); Sodium 141 mmol/L (136-145)
[2021-06-11] MEDS ORDERED: Ketorolac Tromethamine 30 MG/ML VIAL ONE (10:04)
== END 2021-06-11 10:35 | disposition home or self-care (01) ==
LOC: ERS 07:48
DX: G62.9 Polyneuropathy, unspecified (principal); D72.819 Decreased white blood cell count, unspecified; Z21 Asymptomatic human immunodeficiency virus [HIV] infection status; F17.210 Nicotine dependence, cigarettes, uncomplicated
CPT/HCPCS: 72125; 80053; 80307; 81003; 81025; 85025; 93005; 96374; J1885

== ENCOUNTER 2021-09-02 06:30 | Emergency (ER) | payer MEDICARE ==
[2021-09-02] MEDS ORDERED: Mag-Al 1200 mg/1200 mg/30 ML UDCUP ONE (06:48)
[2021-09-02] MEDS ORDERED: Lidocaine Viscous Sol 2% 15 ml UD Cup ONE (06:48)
== END 2021-09-02 07:47 | disposition home or self-care (01) ==
LOC: ERS 06:30
DX: R05.9 Cough, unspecified (principal); J02.9 Acute pharyngitis, unspecified; R06.02 Shortness of breath; B20 Human immunodeficiency virus [HIV] disease; F17.210 Nicotine dependence, cigarettes, uncomplicated; Z79.899 Other long term (current) drug therapy; Z48.00 Encounter for change or removal of nonsurgical wound dressing
CPT/HCPCS: 71045

== ENCOUNTER 2021-10-24 06:21 | Emergency (ER) | payer MEDICARE ==
[2021-10-24] MEDS ORDERED: Boostrix 0.5 ML (Tdap) VIAL ONE (07:01)
[2021-10-24] MEDS ORDERED: Acetaminophen 500 MG TAB ONE (07:01)
[2021-10-24] MEDS ORDERED: Xylocaine 1% w/ Epi 1:100K 10 ML VIAL ONE ×2 (07:01→08:33)
[2021-10-24 08:30] LABS: #Lymphocytes 0.6 thou/uL (1.20-3.40); #Monocytes 0.5 thou/uL (0.11-0.59); #Neutrophils 5.2 thou/uL (1.40-6.50); %Eosinophils 0.1 % (0.0-10.0); %Lymphocytes 9.4 % (21.0-51.0); %Monocytes 7.4 % (0.0-10.0); %Neutrophils 83.1 % (42.0-75.0); Hemoglobin 10.3 g/dL (12.0-16.0); Mean Corpuscular HGB CONC 31.2 g/dL (32.0-36.0); Mean Corpuscular Hemoglobin 28.3 pg (27.0-31.0); Mean Corpuscular Volume 90.5 fL (78.0-98.0); Mean Platelet Volume 8.2 fL (7.4-10.4); Platelet Count 229 thou/uL (130-400); RBC Distribution Width 16.7 % (11.5-14.5); Red Blood Cell (RBC) Count 3.66 mill/uL (4.20-5.40); White Blood Cell (WBC) Count 6.2 thou/uL (4.8-10.8)
== END 2021-10-24 10:59 | disposition home or self-care (01) ==
LOC: ERS 06:21
DX: L02.415 Cutaneous abscess of right lower limb (principal); R55 Syncope and collapse; S01.111A Laceration without foreign body of right eyelid and periocular area, initial encounter; S00.81XA Abrasion of other part of head, initial encounter; S80.212A Abrasion, left knee, initial encounter; S80.211A Abrasion, right knee, initial encounter; S09.90XA Unspecified injury of head, initial encounter; Z23 Encounter for immunization; Z21 Asymptomatic human immunodeficiency virus [HIV] infection status; F17.210 Nicotine dependence, cigarettes, uncomplicated; W19.XXXA Unspecified fall, initial encounter; W22.8XXA Striking against or struck by other objects, initial encounter
CPT/HCPCS: 10060; 12013; 36415; 70450; 70486; 71045; 72125; 85025; 90471; 90715; 93005

== ENCOUNTER 2021-12-21 15:12 | Inpatient (IN) | payer MEDICARE ==
[2021-12-21] MEDS ORDERED: Piperacillin/Tazobactam 3.375 GM VIAL ONE (16:12)
[2021-12-21 16:45] LABS: #Eosinphils 0.2 thou/uL (0.0-0.7); #Lymphocytes 2.3 thou/uL (1.20-3.40); #Monocytes 0.4 thou/uL (0.11-0.59); #Neutrophils 5.2 thou/uL (1.40-6.50); %Basophils 0.6 % (0.0-1.0); %Eosinophils 2.6 % (0.0-10.0); %Lymphocytes 28.2 % (21.0-51.0); %Monocytes 4.3 % (0.0-10.0); %Neutrophils 64.3 % (42.0-75.0); Hemoglobin 10.5 g/dL (12.0-16.0); Mean Corpuscular HGB CONC 31.1 g/dL (32.0-36.0); Mean Corpuscular Hemoglobin 27.7 pg (27.0-31.0); Mean Corpuscular Volume 88.9 fL (78.0-98.0); Mean Platelet Volume 7.7 fL (7.4-10.4); Platelet Count 345 thou/uL (130-400); RBC Distribution Width 16.6 % (11.5-14.5)
[2021-12-21] MEDS ORDERED: Neomycin-Polymyxin 1 ML AMP ONE (16:49)
[2021-12-21] MEDS ORDERED: Vancomycin 1 GM/200 ML BAG ONE (16:49)
[2021-12-21] MEDS ORDERED: Ondansetron PF 4 MG/2 ML Vial IVP PRN (16:51)
[2021-12-21] MEDS ORDERED: Ondansetron ODT 4 MG TAB PO PRN (16:51)
[2021-12-21 17:00] LABS: ALT (SGPT) Less than 7 U/L (8-55); AST (SGOT) 12 U/L (5-34); Alkaline Phosphatase 69 U/L (40-110); Anion Gap 16 mmol/L (10-20); BUN (Urea Nitrogen) 5 mg/dL (7.0-18.7); Bilirubin, Total 0.2 mg/dL (0.2-1.2); Calc. Creatinine Clearance 0 mL/min (70-130); Calcium 8.5 mg/dL (7.8-10.44); Carbon Dioxide 17 mmol/L (22-29); Chloride 109 mmol/L (98-107); Globulin 3.8 g/dL (2.4-3.5); Glucose 65 mg/dL (70-105); Lipase 26 U/L (8-78); Potassium 4.5 mmol/L (3.5-5.1); Protein, Total 6.8 g/dL (6.0-8.3); Sodium 137 mmol/L (136-145)
[2021-12-21] MEDS ORDERED: Enoxaparin Sodium 40 MG/0.4 ML SYRINGE SC SCH (17:00)
[2021-12-21 17:18] LABS: SARS-CoV-2 NAA Rapid Test Not Detected (NotDetected)
[2021-12-21] MEDS ORDERED: fentaNYL Citrate/PF 100 MCG/2 ML SYRINGE ONE ×2 (17:29→18:57)
[2021-12-21] MEDS ORDERED: Metoclopramide HCl 10 MG/2 ML VIAL ONE (17:31)
[2021-12-21] MEDS ORDERED: PROPOFOL 200 MG/20 ML VIAL ONE (17:31)
[2021-12-21] MEDS ORDERED: Lidocaine 1% PF 5 ML VIAL ONE (17:31)
[2021-12-21] MEDS ORDERED: Succinylcholine 200 MG/10 ml SYRINGE FS ONE (17:31)
[2021-12-21] MEDS ORDERED: PHENYLEPHRINE-NS 100 MCG/ML 10 ML SYRINGE ONE (17:31)
[2021-12-21] MEDS ORDERED: Glycopyrrolate 0.2 MG/ML 5 ML SYRINGE ONE (17:31)
[2021-12-21] MEDS ORDERED: ONDANSETRON 2 MG/ML ONE (17:31)
[2021-12-21] MEDS ORDERED: Rocuronium Bromide 10 MG/ML (10ML VIAL) ONE (17:31)
[2021-12-21] MEDS ORDERED: Morphine 4 MG/ML VIAL SLOW IVP PRN (17:34)
[2021-12-21] MEDS ORDERED: Ondansetron HCl/PF 4 MG/2 ML Vial IVP PRN ×2 (18:53)
[2021-12-21] MEDS: Piperacillin/Tazobactam 3.375 GM in Sodium Chloride 0.9% 100 ML IVPB SCH (21:58)
[2021-12-21 23:18] LABS: Bilirubin Negative (Negative); Blood, Urine Negative (Negative); Clarity Turbid (Clear); Glucose, Urine (Dipstick) Normal (Negative); Ketone, Urine Negative (Negative); Leukocyte 500 Leu/uL (Negative); Nitrite Negative (Negative); Protein, Urine (Dipstick) 10 mg/dL (Neg-Trace); Specific Gravity, Urine 1.011 (1.002-1.036); Squamous Epithelial 21-50 HPF (0-3); Urobilinogen Normal mg/dL (Less than 2); WBC/HPF 21-50 HPF (0-3)
[2021-12-21 23:19] LABS: Bacteria/HPF 1+ HPF (None Seen); Urine Culture Reflex No No
[2021-12-21 23:25] LABS: Amphetamine Not Detected (NotDetected); Barbiturates Screen Not Detected (NotDetected); Benzodiazepine Screen Not Detected (NotDetected); Cocaine Metabolite Screen Detected (NotDetected); Methadone Not Detected (NotDetected); Methamphetamine Not Detected (NotDetected); Opiate Screen Not Detected (NotDetected); Oxycodone Screen Not Detected (NotDetected); Phencyclidine (PCP) Not Detected (NotDetected); THC/Cannabinoid Screen Not Detected (NotDetected); Tricyclic Screen Not Detected (NotDetected)
[2021-12-21] MEDS: Acetaminophen/Codeine 30-300mg Tablet PO PRN (23:49)
[2021-12-22] MEDS: Vancomycin HCl 750 MG in Sodium Chloride 0.9% 250 ML 250 ML IVPB SCH ×4 (04:01→23:30)
[2021-12-22] MEDS: Piperacillin/Tazobactam 3.375 GM in Sodium Chloride 0.9% 100 ML IVPB SCH ×2 (06:01→13:58)
[2021-12-22 17:38] LABS: Vancomycin, Trough 14.4 ug/mL
[2021-12-22] MEDS: Raltegravir Potassium 400 MG TAB PO SCH (20:46)
[2021-12-23] MEDS: Piperacillin/Tazobactam 3.375 GM in Sodium Chloride 0.9% 100 ML IVPB SCH ×4 (01:14→17:33)
[2021-12-23 06:20] LABS: #Eosinphils 0.3 thou/uL (0.0-0.7); #Lymphocytes 1.8 thou/uL (1.20-3.40); #Monocytes 0.7 thou/uL (0.11-0.59); #Neutrophils 4.4 thou/uL (1.40-6.50); %Basophils 0.2 % (0.0-1.0); %Eosinophils 4.3 % (0.0-10.0); %Lymphocytes 24.5 % (21.0-51.0); %Monocytes 9.6 % (0.0-10.0); %Neutrophils 61.4 % (42.0-75.0); Hemoglobin 9.5 g/dL (12.0-16.0); Mean Corpuscular HGB CONC 31.9 g/dL (32.0-36.0); Mean Corpuscular Hemoglobin 27.2 pg (27.0-31.0); Mean Corpuscular Volume 85.3 fL (78.0-98.0); Platelet Count 339 thou/uL (130-400); RBC Distribution Width 16.5 % (11.5-14.5); Red Blood Cell (RBC) Count 3.49 mill/uL (4.20-5.40); White Blood Cell (WBC) Count 7.1 thou/uL (4.8-10.8)
[2021-12-23] MEDS: Vancomycin HCl 750 MG in Sodium Chloride 0.9% 250 ML 250 ML IVPB SCH ×2 (06:32→15:43)
[2021-12-23 06:44] LABS: Anion Gap 11 mmol/L (10-20); BUN (Urea Nitrogen) 6 mg/dL (7.0-18.7); Calc. Creatinine Clearance 87 mL/min (70-130); Calcium 8.9 mg/dL (7.8-10.44); Carbon Dioxide 24 mmol/L (22-29); Chloride 109 mmol/L (98-107); Glucose 91 mg/dL (70-105); Potassium 3.8 mmol/L (3.5-5.1); Sodium 140 mmol/L (136-145)
[2021-12-23] MEDS: Emtricitabine/Tenofovir 200-300 MG TAB PO SCH (09:03)
[2021-12-23] MEDS: Raltegravir Potassium 400 MG TAB PO SCH ×2 (09:03→22:01)
[2021-12-23] MEDS: Fluconazole 100 MG TAB PO SCH (09:03)
[2021-12-23 09:18] LABS: BHCG - Serum Negative (NEGATIVE); Pregs Control Background? CLEAR/WHITE (CLR/WHITE); Pregs Control Bar Appear? YES (CONTROL BAR)
[2021-12-23] MEDS ORDERED: Iopamidol-370 76% 500 ML 1 ML ONE (09:56)
[2021-12-23] MEDS: Acetaminophen/Codeine 30-300mg Tablet PO PRN ×3 (10:26→22:24)
[2021-12-23] MEDS ORDERED: Lidocaine 1% (PF) 30 ML VIAL ONE (13:28)
[2021-12-23 14:15] LABS: %CD4 (Helper/Inducer) 1.3 % (30.8-58.5); Absolute CD4 30 /uL (359-1519); Lymphocytes/Gated Cell Count 2.3 x10E3/uL (0.7-3.1); Total Lymphocyte 34 % (Not Estab.); WBC Total Count 6.7 x10E3/uL (3.4-10.8)
[2021-12-23] MEDS: Benztropine 1 MG TAB PO SCH (22:00)
[2021-12-23] MEDS: Doxepin HCl 25 MG CAP PO SCH (22:01)
[2021-12-23] MEDS: Vancomycin 1 GM in Premix Bag 1 BAG IVPB SCH (23:00)
[2021-12-23 23:07] LABS: Vancomycin, Trough 11.7 ug/mL
[2021-12-24] MEDS: Cyproheptadine 4 MG TAB PO SCH ×2 (00:56→19:35)
[2021-12-24] MEDS: Vancomycin HCl 750 MG in Sodium Chloride 0.9% 250 ML 250 ML IVPB SCH (01:11)
[2021-12-24] MEDS: Vancomycin 1 GM in Premix Bag 1 BAG IVPB SCH ×4 (01:13→23:48)
[2021-12-24 06:28] LABS: #Eosinphils 0.6 thou/uL (0.0-0.7); #Lymphocytes 1.4 thou/uL (1.20-3.40); #Monocytes 0.4 thou/uL (0.11-0.59); #Neutrophils 2.2 thou/uL (1.40-6.50); %Basophils 0.5 % (0.0-1.0); %Lymphocytes 30.7 % (21.0-51.0); %Monocytes 9.1 % (0.0-10.0); %Neutrophils 47.7 % (42.0-75.0); Hemoglobin 9.5 g/dL (12.0-16.0); Mean Corpuscular HGB CONC 30.3 g/dL (32.0-36.0); Mean Platelet Volume 7.5 fL (7.4-10.4); Platelet Count 335 thou/uL (130-400); RBC Distribution Width 16.3 % (11.5-14.5); Red Blood Cell (RBC) Count 3.51 mill/uL (4.20-5.40); White Blood Cell (WBC) Count 4.7 thou/uL (4.8-10.8)
[2021-12-24 06:56] LABS: Anion Gap 11 mmol/L (10-20); BUN (Urea Nitrogen) 6 mg/dL (7.0-18.7); Calc. Creatinine Clearance 98 mL/min (70-130); Calcium 8.6 mg/dL (7.8-10.44); Carbon Dioxide 24 mmol/L (22-29); Chloride 109 mmol/L (98-107); Glucose 73 mg/dL (70-105); Potassium 3.8 mmol/L (3.5-5.1); Sodium 140 mmol/L (136-145)
[2021-12-24] MEDS: Acetaminophen/Codeine 30-300mg Tablet PO PRN ×4 (06:57→23:11)
[2021-12-24] MEDS: tiZANidine HCl 4 MG TAB PO PRN ×2 (06:57→14:48)
[2021-12-24] MEDS: Raltegravir Potassium 400 MG TAB PO SCH ×2 (09:01→19:30)
[2021-12-24] MEDS: Piperacillin/Tazobactam 3.375 GM in Sodium Chloride 0.9% 100 ML IVPB SCH ×2 (09:01)
[2021-12-24] MEDS: FLUoxetine HCl 20 MG CAP PO SCH (09:01)
[2021-12-24] MEDS: Emtricitabine/Tenofovir 200-300 MG TAB PO SCH (09:01)
[2021-12-24] MEDS: Fluconazole 100 MG TAB PO SCH (09:01)
[2021-12-24] MEDS: Benztropine 1 MG TAB PO SCH (19:30)
[2021-12-24] MEDS: Doxepin HCl 25 MG CAP PO SCH (19:30)
[2021-12-24 23:13] LABS: Vancomycin, Trough 23.4 ug/mL
[2021-12-25] MEDS: Acetaminophen/Codeine 30-300mg Tablet PO PRN ×2 (03:55→09:18)
[2021-12-25] MEDS: tiZANidine HCl 4 MG TAB PO PRN (05:53)
[2021-12-25] MEDS ORDERED: Vancomycin HCl 750 MG in Sodium Chloride 0.9% 250 ML 250 ML IVPB SCH (08:00)
[2021-12-25] MEDS ORDERED: Clindamycin 150 MG CAP PO SCH (08:15)
[2021-12-25] MEDS: FLUoxetine HCl 20 MG CAP PO SCH (09:18)
[2021-12-25] MEDS: Raltegravir Potassium 400 MG TAB PO SCH (09:18)
[2021-12-25] MEDS: Emtricitabine/Tenofovir 200-300 MG TAB PO SCH (09:18)
[2021-12-25] MEDS: Fluconazole 100 MG TAB PO SCH (09:19)
[2021-12-25 16:55] VITALS: BP 90/55; TEMP 98.7
[2021-12-25 22:09] LABS: LOG10 HIV-1 RNA 4.371 (.)
== END 2021-12-25 15:00 | disposition home health service (06) | DRG 857 ==
LOC: ERS 15:12 → SDC/OP 17:04 → SURG A 17:32
PROVIDERS: ADMIT Student in an Organized Health Care Education/Training Program; ATTEND Student in an Organized Health Care Education/Training Program
PROC: 0K9G0ZZ Drainage of Left Trunk Muscle, Open Approach (ICD-10-PCS; principal; 2021-12-21)
PROC: 0K9F0ZZ Drainage of Right Trunk Muscle, Open Approach (ICD-10-PCS; 2021-12-21)
PROC: 0J910ZZ Drainage of Face Subcutaneous Tissue and Fascia, Open Approach (ICD-10-PCS; 2021-12-23)
DX: T81.41XA Infection following a procedure, superficial incisional surgical site, initial encounter (principal); L03.312 Cellulitis of back [any part except buttock and flank]; L02.01 Cutaneous abscess of face; Z21 Asymptomatic human immunodeficiency virus [HIV] infection status; Y83.8 Other surgical procedures as the cause of abnormal reaction of the patient, or of later complication, without mention of misadventure at the time of the procedure; F31.9 Bipolar disorder, unspecified; F20.9 Schizophrenia, unspecified; G47.00 Insomnia, unspecified; F43.10 Post-traumatic stress disorder, unspecified; B95.62 Methicillin resistant Staphylococcus aureus infection as the cause of diseases classified elsewhere; F14.10 Cocaine abuse, uncomplicated; F17.210 Nicotine dependence, cigarettes, uncomplicated; Z98.890 Other specified postprocedural states; Z88.8 Allergy status to other drugs, medicaments and biological substances; Z79.899 Other long term (current) drug therapy; Z98.51 Tubal ligation status; Z91.14 Patient's other noncompliance with medication regimen
CPT/HCPCS: 36415; 70487; 71045; 80048; 80053; 80202; 80306; 81001; 83605; 83690; 84145; 84703; 85025; 85652; 86140; 86361; 87040; 87070; 87077; 87116; 87186; 87205; 87206; 87536; 93005; 96365; 96375; J2001; J2270; J2405; J2543; J2704; J2765; J3370; J3490; J7050; Q9967; U0002

== ENCOUNTER 2022-07-26 13:40 | Emergency (ER) | payer MEDICARE ==
[2022-07-26] MEDS ORDERED: Ketorolac Tromethamine 30 MG/ML VIAL ONE (15:55)
[2022-07-26 16:48] LABS: Hemoglobin 11.8 g/dL (12.0-16.0); Mean Corpuscular HGB CONC 31.5 g/dL (32.0-36.0); Mean Corpuscular Hemoglobin 26.9 pg (27.0-31.0); Mean Corpuscular Volume 85.6 fl (78.0-98.0); Mean Platelet Volume 10.2 fL (7.4-10.4); Platelet Count 220 10x3/uL (130-400); RBC Distribution Width 17.4 % (11.5-14.5); White Blood Cell (WBC) Count 5.9 10x3/uL (4.8-10.8)
[2022-07-26 17:03] LABS: ALT (SGPT) Less than 7 U/L (8-55); AST (SGOT) 19 U/L (5-34); Albumin 3.9 g/dL (3.5-5.0); Alkaline Phosphatase 56 U/L (40-110); Anion Gap 13 mmol/L (10-20); BUN (Urea Nitrogen) 6 mg/dL (7.0-18.7); Bilirubin, Total 0.3 mg/dL (0.2-1.2); Calc. Creatinine Clearance 0 mL/min (70-130); Calcium 9.1 mg/dL (7.8-10.44); Carbon Dioxide 24 mmol/L (22-29); Chloride 108 mmol/L (98-107); Estimated GFR 105; Globulin 3.8 g/dL (2.4-3.5); Glucose 71 mg/dL (70-105); Potassium 3.9 mmol/L (3.5-5.1); Protein, Total 7.7 g/dL (6.0-8.3); Sodium 141 mmol/L (136-145)
[2022-07-26 17:06] LABS: Anisocytosis SLIGHT = 6-15 cells (100X) (0-5/hpf); Hypochromia SLIGHT = 6-15 cells (100X) (0-5/hpf); Lymphocytes 8 % (21-51); MDiff Complete? YES; Monocytes 5 % (0-10); Neutrophil 83 % (42-75); Ovalocytes SLIGHT = 2-5 cells (100X) (0-1/hpf); Platelet Morphology Comment Appears Adequate; Polychromasia SLIGHT = 2-3 cells (100X) (0-2/hpf); Reactive Lymphocytes 3 % (0-10)
[2022-07-26] MEDS ORDERED: HYDROcodone/Acetaminophen 5/325 mg Tablet ONE ×2 (17:20→17:49)
== END 2022-07-26 18:34 | disposition home or self-care (01) ==
LOC: ERS 13:40
DX: R05.9 Cough, unspecified (principal)
CPT/HCPCS: 36415; 71046; 72100; 80053; 85025; 96372; J1885

== ENCOUNTER 2023-05-07 17:35 | Emergency (ER) | payer MEDICARE, OTHER ==
[2023-05-07 18:02] LABS: Hematocrit 35.9 % (36.0-47.0); Hemoglobin 11.5 g/dL (12.0-16.0); Mean Corpuscular Hemoglobin 28.3 pg (27.0-31.0); Mean Corpuscular Volume 88.2 fl (78.0-98.0); Mean Platelet Volume 10.6 fL (7.4-10.4); Platelet Count 151 10x3/uL (130-400); RBC Distribution Width 15.6 % (11.5-14.5); Red Blood Cell (RBC) Count 4.07 mill/uL (4.20-5.40); White Blood Cell (WBC) Count 3.9 10x3/uL (4.8-10.8)
[2023-05-07 18:05] LABS: Delete Auto Diff?? YES; Manual Diff?? YES
[2023-05-07 18:23] LABS: Band 2 % (5-11); CellaVision Operator ID LAB.KB; Eosinophils 1 % (0-10); Large Platelets 12.2 % (0-5); Lymphocytes 25 % (21-51); Monocytes 7 % (0-10); Neutrophil 59 % (42-75); Ovalocytes SLIGHT = 2-5 cells HPF (0-1); Platelet Adequacy Comment Platelets Normal; Polychromasia SLIGHT = 2-3 cells HPF (0-2); Reactive Lymphocytes 6 % (0-10); Smudge Cells 25.5 %; Total Cell Count 98
[2023-05-07 18:28] LABS: ALT (SGPT) 10 U/L (8-55); AST (SGOT) 21 U/L (5-34); Albumin 4.5 g/dL (3.5-5.0); Alkaline Phosphatase 70 U/L (40-110); Anion Gap 14 mmol/L (10-20); BUN (Urea Nitrogen) 9 mg/dL (7.0-18.7); Bilirubin, Total 0.3 mg/dL (0.2-1.2); Calc. Creatinine Clearance 0 mL/min (70-130); Calcium 8.8 mg/dL (7.8-10.44); Carbon Dioxide 23 mmol/L (22-29); Chloride 109 mmol/L (98-107); Estimated GFR 114; Globulin 3.6 g/dL (2.4-3.5); Glucose 73 mg/dL (70-105); Potassium 3.9 mmol/L (3.5-5.1); Protein, Total 8.1 g/dL (6.0-8.3); Sodium 142 mmol/L (136-145)
[2023-05-07 18:35] LABS: Troponin I Less than 0.010 ng/mL (< 0.028)
[2023-05-07 18:36] LABS: Acetaminophen Less than 10 mcg/mL (10.0-30.0); Alcohol Less than 10.0 mg/dL (Less than 10); Lipase 49 U/L (8-78); Salicylate Less than 8.0 mg/dL (15.0-30.0)
== END 2023-05-07 21:50 ==
LOC: ERS 17:35
DX: Z02.89 Encounter for other administrative examinations (principal); B20 Human immunodeficiency virus [HIV] disease
CPT/HCPCS: 70450; 80053; 80307; 83690; 84484; 85025; 93005

== ENCOUNTER 2023-05-08 01:33 | Observation (INO) | payer MEDICARE, OTHER ==
[2023-05-08 03:21] LABS: BHCG - Serum Negative (NEGATIVE); Pregs Control Background? CLEAR/WHITE (CLR/WHITE); Pregs Control Bar Appear? YES (CONTROL BAR)
[2023-05-08 03:22] LABS: #Eosinphils 0.2 thou/uL (0.0-0.7); #Monocytes 0.3 thou/uL (0.11-0.59); #Neutrophils 1.8 thou/uL (1.40-6.50); %Basophils 0.3 % (0.0-1.0); %Eosinophils 4.9 % (0.0-10.0); %Lymphocytes 32.1 % (21.0-51.0); %Neutrophils 52.8 % (42.0-75.0); Hematocrit 36.3 % (36.0-47.0); Hemoglobin 11.7 g/dL (12.0-16.0); Mean Corpuscular HGB CONC 32.2 g/dL (32.0-36.0); Mean Corpuscular Hemoglobin 28.1 pg (27.0-31.0); Mean Corpuscular Volume 87.3 fl (78.0-98.0); Mean Platelet Volume 11.9 fL (7.4-10.4); Platelet Count 138 10x3/uL (130-400); RBC Distribution Width 15.7 % (11.5-14.5); Red Blood Cell (RBC) Count 4.16 mill/uL (4.20-5.40); White Blood Cell (WBC) Count 3.5 10x3/uL (4.8-10.8)
[2023-05-08 03:27] LABS: Bacteria/HPF None Seen HPF (None Seen); Bilirubin Negative (Negative); Blood, Urine Negative (Negative); CAUTI Indications for Culture Alt mental st,lethar; Clarity Clear (Clear); Glucose, Urine (Dipstick) Normal (Negative); Ketone, Urine Negative (Negative); Leukocyte 75 Leu/uL (Negative); Nitrite Negative (Negative); Protein, Urine (Dipstick) 10 mg/dL (Neg-Trace); RBC/HPF None Seen HPF (0-3); Specific Gravity, Urine 1.019 (1.002-1.036); Squamous Epithelial 0-3 HPF (0-3); Urobilinogen Normal mg/dL (Less than 2); WBC/HPF 0-3 HPF (0-3)
[2023-05-08 03:28] LABS: Urine Culture Reflex No No
[2023-05-08 03:31] LABS: Acetaminophen Less than 10 mcg/mL (10.0-30.0); Alcohol Less than 10.0 mg/dL (Less than 10); Lipase 44 U/L (8-78); Salicylate Less than 8.0 mg/dL (15.0-30.0)
[2023-05-08 03:32] LABS: ALT (SGPT) 9 U/L (8-55); AST (SGOT) 21 U/L (5-34); Albumin 4.3 g/dL (3.5-5.0); Alkaline Phosphatase 67 U/L (40-110); Anion Gap 15 mmol/L (10-20); BUN (Urea Nitrogen) 9 mg/dL (7.0-18.7); Bilirubin, Total 0.3 mg/dL (0.2-1.2); CK (CPK) 178 U/L (29-168); Calc. Creatinine Clearance 0 mL/min (70-130); Calcium 8.8 mg/dL (7.8-10.44); Carbon Dioxide 22 mmol/L (22-29); Chloride 108 mmol/L (98-107); Estimated GFR 110; Globulin 3.7 g/dL (2.4-3.5); Glucose 63 mg/dL (70-105); Potassium 3.6 mmol/L (3.5-5.1); Sodium 141 mmol/L (136-145)
[2023-05-08 03:32] LABS: Amphetamine Not Detected (NotDetected); Barbiturates Screen Not Detected (NotDetected); Benzodiazepine Screen Not Detected (NotDetected); Cocaine Metabolite Screen Detected (NotDetected); Methadone Not Detected (NotDetected); Methamphetamine Not Detected (NotDetected); Opiate Screen Not Detected (NotDetected); Oxycodone Screen Not Detected (NotDetected); Phencyclidine (PCP) Not Detected (NotDetected); THC/Cannabinoid Screen Detected (NotDetected); Tricyclic Screen Detected (NotDetected)
[2023-05-08 03:35] LABS: Troponin I Less than 0.010 ng/mL (< 0.028)
[2023-05-08] MEDS ORDERED: Dextrose 5 %-0.45 % NaCl 1,000 ML IV SCH (04:30)
[2023-05-08] MEDS ORDERED: Acetaminophen 325 MG TAB PO PRN (08:04)
[2023-05-08] MEDS ORDERED: Ondansetron PF 4 MG/2 ML Vial IVP PRN (08:04)
[2023-05-08] MEDS ORDERED: Ondansetron ODT 4 MG TAB PO PRN (08:04)
[2023-05-08] MEDS ORDERED: Dextrose 50% Abboject 50 ML SYRINGE SLOW IVP PRN (08:31)
[2023-05-08] MEDS ORDERED: Dextrose 5% in Water 1,000 ML IV PRN (08:31)
[2023-05-08] MEDS ORDERED: Glucagon 1 MG/ML KIT IM PRN (08:31)
[2023-05-08] MEDS ORDERED: FLU VACC QS2023-24(6MOS UP)/PF 60 MCG/0.5 ML SYRINGE IM ONE (18:00)
[2023-05-09 06:17] LABS: #Eosinphils 0.2 thou/uL (0.0-0.7); #Monocytes 0.2 thou/uL (0.11-0.59); #Neutrophils 1.6 thou/uL (1.40-6.50); %Basophils 0.8 % (0.0-1.0); %Eosinophils 6.9 % (0.0-10.0); %Lymphocytes 24.4 % (21.0-51.0); %Monocytes 6.9 % (0.0-10.0); %Neutrophils 60.2 % (42.0-75.0); Hematocrit 30.8 % (36.0-47.0); Hemoglobin 9.8 g/dL (12.0-16.0); Mean Corpuscular HGB CONC 31.8 g/dL (32.0-36.0); Mean Corpuscular Hemoglobin 28.2 pg (27.0-31.0); Mean Corpuscular Volume 88.8 fl (78.0-98.0); Mean Platelet Volume 11.6 fL (7.4-10.4); Platelet Count 123 10x3/uL (130-400); RBC Distribution Width 15.9 % (11.5-14.5); Red Blood Cell (RBC) Count 3.47 mill/uL (4.20-5.40); White Blood Cell (WBC) Count 2.6 10x3/uL (4.8-10.8)
[2023-05-09 06:35] LABS: Anion Gap 11 mmol/L (10-20); BUN (Urea Nitrogen) 8 mg/dL (7.0-18.7); Calc. Creatinine Clearance 79 mL/min (70-130); Calcium 8.3 mg/dL (7.8-10.44); Carbon Dioxide 21 mmol/L (22-29); Chloride 112 mmol/L (98-107); Estimated GFR 103; Glucose 99 mg/dL (70-105); Potassium 3.6 mmol/L (3.5-5.1); Sodium 140 mmol/L (136-145)
[2023-05-09 08:15] VITALS: TEMP 98.7
[2023-05-09 10:33] VITALS: BMI 17.8
[2023-05-09 12:54] VITALS: BP 96/63
== END 2023-05-09 13:20 ==
LOC: SUATTDRO 01:33 → ERS 01:33 → EEVIPCON 01:33 → T4-B 07:33
PROVIDERS: ADMIT Internal Medicine; ATTEND Internal Medicine
DX: G92.8 Other toxic encephalopathy (principal); F41.8 Other specified anxiety disorders; F31.9 Bipolar disorder, unspecified; B20 Human immunodeficiency virus [HIV] disease; F20.9 Schizophrenia, unspecified; E16.2 Hypoglycemia, unspecified; Z88.8 Allergy status to other drugs, medicaments and biological substances
CPT/HCPCS: 36415; 36416; 51701; 71045; 80048; 80053; 80306; 80307; 81001; 82140; 82550; 83036; 83690; 84484; 84703; 85025; 94760; 96365; 96366; G0378

== ENCOUNTER 2023-06-11 00:28 | Emergency (ER) | payer MEDICARE ==
[2023-06-11 01:49] LABS: Hemoglobin 9.3 g/dL (12.0-16.0); Mean Corpuscular Hemoglobin 28.1 pg (27.0-31.0); Mean Corpuscular Volume 90.6 fl (78.0-98.0); Mean Platelet Volume 11.5 fL (7.4-10.4); Platelet Count 166 10x3/uL (130-400); RBC Distribution Width 15.2 % (11.5-14.5); Red Blood Cell (RBC) Count 3.31 mill/uL (4.20-5.40); White Blood Cell (WBC) Count 5.9 10x3/uL (4.8-10.8)
[2023-06-11 01:54] LABS: Delete Auto Diff?? YES; Manual Diff?? YES
[2023-06-11 01:57] LABS: BHCG - Serum Negative (NEGATIVE); Pregs Control Background? CLEAR/WHITE (CLR/WHITE); Pregs Control Bar Appear? YES (CONTROL BAR)
[2023-06-11 02:10] LABS: ALT (SGPT) 13 U/L (8-55); AST (SGOT) 19 U/L (5-34); Albumin 3.5 g/dL (3.5-5.0); Alkaline Phosphatase 57 U/L (40-110); Anion Gap 12 mmol/L (10-20); BUN (Urea Nitrogen) 14 mg/dL (7.0-18.7); Bilirubin, Total 0.2 mg/dL (0.2-1.2); Calc. Creatinine Clearance 0 mL/min (70-130); Calcium 8.9 mg/dL (7.8-10.44); Carbon Dioxide 27 mmol/L (22-29); Chloride 105 mmol/L (98-107); Estimated GFR 97; Globulin 3.8 g/dL (2.4-3.5); Glucose 74 mg/dL (70-105); Protein, Total 7.3 g/dL (6.0-8.3); Sodium 140 mmol/L (136-145)
[2023-06-11 02:14] LABS: Troponin I 0.012 ng/mL (< 0.028)
[2023-06-11 02:16] LABS: Band 5 % (5-11); CellaVision Operator ID LAB.CLH1; Eosinophils 10 % (0-10); Hypochromia SLIGHT = 6-15 cells HPF (0-5); Lymphocytes 13 % (21-51); Monocytes 7 % (0-10); Neutrophil 65 % (42-75); Platelet Adequacy Comment Platelets Normal; Polychromasia SLIGHT = 2-3 cells HPF (0-2); Total Cell Count 100
[2023-06-11] MEDS ORDERED: Acetaminophen 500 MG TAB ONE (03:04)
[2023-06-11] MEDS ORDERED: Dicyclomine 20 MG TAB ONE (03:05)
== END 2023-06-11 03:54 ==
LOC: ERS 00:28
DX: R10.84 Generalized abdominal pain (principal); R07.89 Other chest pain; Z21 Asymptomatic human immunodeficiency virus [HIV] infection status
CPT/HCPCS: 36415; 71045; 80053; 84484; 84703; 85025; 93005

== ENCOUNTER 2025-05-03 05:36 | Inpatient (IN) | payer OTHER, SELFPAY ==
[2025-05-03] MEDS ORDERED: Ondansetron PF 4 MG/2 ML Vial ONE (06:15)
[2025-05-03 07:51] LABS: #Basophils Less than 0.03 10x3/uL (0.0-0.2); #Eosinophils 0.09 10x3/uL (0.0-0.7); #Monocytes 0.22 10x3/uL (0.11-0.59); #Neutrophils 1.99 10x3/uL (1.40-6.50); %Basophils 0.3 % (0.0-1.0); %Eosinophils 2.8 % (0.0-10.0); %Lymphocytes 28.4 % (21.0-51.0); %Monocytes 6.8 % (0.0-10.0); %Neutrophils 61.4 % (42.0-75.0); Hematocrit 29.3 % (36.0-47.0); Hemoglobin 9.2 g/dL (12.0-16.0); Mean Corpuscular Hemoglobin 28.4 pg (27.0-31.0); Mean Corpuscular Volume 90.4 fL (78.0-98.0); Platelet Count 155 10x3/uL (130-400); Red Blood Cell (RBC) Count 3.24 mill/uL (4.20-5.40); White Blood Cell (WBC) Count 3.24 10x3/uL (4.8-10.8)
[2025-05-03] MEDS ORDERED: Cefepime 2 GM VIAL ONE (08:12)
[2025-05-03 08:19] LABS: BHCG - Serum Negative (NEGATIVE); Pregs Control Background? CLEAR/WHITE (CLR/WHITE); Pregs Control Bar Appear? YES (CONTROL BAR)
[2025-05-03 08:26] LABS: ALT (SGPT) Less than 7 U/L (Less than 34); AST (SGOT) 24 U/L (11-34); Albumin 2.9 g/dL (3.1-4.5); Alkaline Phosphatase 50 U/L (40-110); Anion Gap 7 mmol/L (10-20); BUN (Urea Nitrogen) 7 mg/dL (7.0-18.7); Bilirubin, Total 0.2 mg/dL (0.3-1.2); Calc. Creatinine Clearance 0 mL/min (70-130); Calcium 7.5 mg/dL (7.8-10.44); Carbon Dioxide 22 mmol/L (22-29); Chloride 112 mmol/L (98-107); Globulin 2.8 g/dL (2.4-3.5); Glucose 77 mg/dL (70-105); Potassium 2.8 mmol/L (3.5-5.1); Sodium 138 mmol/L (136-145)
[2025-05-03] MEDS ORDERED: Ondansetron PF 4 MG/2 ML Vial IVP PRN (11:09)
[2025-05-03] MEDS ORDERED: Calcium Carbonate 500 MG ChewTAB PO PRN (11:09)
[2025-05-03 11:10] VITALS: BMI 23.6
[2025-05-03] MEDS ORDERED: Electrolyte Replacement Protocol 1 EACH FS SCH (11:15)
[2025-05-03 11:44] LABS: Magnesium 1.7 mg/dL (1.6-2.6)
[2025-05-03] MEDS ORDERED: Iopamidol-370 76% 500 ML MDV (1 ML CHARGE) ONE (12:39)
[2025-05-03] MEDS ORDERED: NS 0.9% w/ 20 MEQ KCL 1,000 ML ONE (13:15)
[2025-05-03] MEDS: NS 0.9% w/ 20 MEQ KCL 1,000 ML/1,000 ML BAG IV SCH (13:22)
[2025-05-03 15:15] LABS: Cocaine Metabolite Screen PRELIM POSITIVE (Negative); THC/Cannabinoid Screen Negative (Negative); Tricyclic Screen Negative (Negative)
[2025-05-03] MEDS: Acetaminophen 325 MG TAB PO PRN (15:16)
[2025-05-03] MEDS: guaiFENesin/Codeine 200 mg/20 mg 10 ml Cup PO PRN (21:43)
[2025-05-03] MEDS: Ketorolac Tromethamine 30 MG (1 mL) VIAL IVP PRN (21:43)
[2025-05-03] MEDS: Melatonin 3 MG TAB PO PRN (21:44)
[2025-05-04] MEDS: Transdermal Patch Removal LIDOCAINE TOP SCH (05:18)
[2025-05-04 05:21] LABS: #Basophils Less than 0.03 10x3/uL (0.0-0.2); #Eosinophils 0.16 10x3/uL (0.0-0.7); #Monocytes 0.20 10x3/uL (0.11-0.59); #Neutrophils 2.18 10x3/uL (1.40-6.50); %Basophils 0.3 % (0.0-1.0); %Eosinophils 5.0 % (0.0-10.0); %Lymphocytes 19.7 % (21.0-51.0); %Monocytes 6.3 % (0.0-10.0); %Neutrophils 68.4 % (42.0-75.0); Hematocrit 31.0 % (36.0-47.0); Hemoglobin 10.0 g/dL (12.0-16.0); Mean Corpuscular Hemoglobin 28.8 pg (27.0-31.0); Mean Corpuscular Volume 89.3 fL (78.0-98.0); Platelet Count 162 10x3/uL (130-400); Red Blood Cell (RBC) Count 3.47 mill/uL (4.20-5.40); White Blood Cell (WBC) Count 3.19 10x3/uL (4.8-10.8)
[2025-05-04 05:39] LABS: ALT (SGPT) 11 U/L (Less than 34); AST (SGOT) 41 U/L (11-34); Albumin 2.5 g/dL (3.1-4.5); Alkaline Phosphatase 58 U/L (40-110); Anion Gap 9 mmol/L (10-20); BUN (Urea Nitrogen) 8 mg/dL (7.0-18.7); Bilirubin, Total 0.1 mg/dL (0.3-1.2); Calc. Creatinine Clearance 129 mL/min (70-130); Calcium 8.2 mg/dL (7.8-10.44); Carbon Dioxide 20 mmol/L (22-29); Chloride 117 mmol/L (98-107); Globulin 2.8 g/dL (2.4-3.5); Glucose 86 mg/dL (70-105); Potassium 3.7 mmol/L (3.5-5.1); Sodium 142 mmol/L (136-145)
[2025-05-04] MEDS: FLU (Fluarix Triv) 25-26 (6MOS UP)/PF 45 MCG/0.5 ML Syringe IM ONE (10:44)
[2025-05-04] MEDS: PNEUMOC 20-VAL CONJ-DIP CRM/PF 0.5 ML SYRINGE IM ONE (10:44)
[2025-05-04] MEDS: Ketorolac Tromethamine 30 MG (1 mL) VIAL IVP PRN (14:01)
[2025-05-05 06:04] LABS: #Basophils 0.03 10x3/uL (0.0-0.2); #Eosinophils 0.34 10x3/uL (0.0-0.7); #Monocytes 0.16 10x3/uL (0.11-0.59); #Neutrophils 1.72 10x3/uL (1.40-6.50); %Basophils 0.9 % (0.0-1.0); %Eosinophils 10.4 % (0.0-10.0); %Lymphocytes 31.0 % (21.0-51.0); %Monocytes 4.9 % (0.0-10.0); %Neutrophils 52.8 % (42.0-75.0); Hematocrit 31.7 % (36.0-47.0); Hemoglobin 10.1 g/dL (12.0-16.0); Mean Corpuscular Hemoglobin 28.9 pg (27.0-31.0); Mean Corpuscular Volume 90.6 fL (78.0-98.0); Platelet Count 156 10x3/uL (130-400); Red Blood Cell (RBC) Count 3.50 mill/uL (4.20-5.40); White Blood Cell (WBC) Count 3.26 10x3/uL (4.8-10.8)
[2025-05-05 06:22] LABS: ALT (SGPT) 15 U/L (Less than 34); AST (SGOT) 23 U/L (11-34); Albumin 2.5 g/dL (3.1-4.5); Alkaline Phosphatase 54 U/L (40-110); Anion Gap 7 mmol/L (10-20); BUN (Urea Nitrogen) 10 mg/dL (7.0-18.7); Bilirubin, Total 0.2 mg/dL (0.3-1.2); Calc. Creatinine Clearance 129 mL/min (70-130); Calcium 7.9 mg/dL (7.8-10.44); Carbon Dioxide 21 mmol/L (22-29); Chloride 116 mmol/L (98-107); Globulin 2.7 g/dL (2.4-3.5); Glucose 76 mg/dL (70-105); Potassium 3.8 mmol/L (3.5-5.1); Sodium 140 mmol/L (136-145)
[2025-05-05] MEDS: BIKTARVY 50-200-25 MG TABLET PO SCH (08:24)
[2025-05-05] MEDS: Sulfameth/Trimethoprim DS 800-160mg TAB PO SCH (08:24)
[2025-05-05] MEDS ORDERED: Non-Formulary Item 1 EACH (Bictegrav/Emtricit/Tenofov Ala 1 TAB Tab) PO SCH (09:00)
[2025-05-05] MEDS: HYDROcodone/Acetaminophen 5/325 mg Tablet PO PRN (10:08)
[2025-05-05 14:13] LABS: %CD4 Pos. Lymph 3.0 % (30.8-58.5); Absolute CD4 21 /uL (359-1519); Lymphocytes/Gated Cell Count 0.7 x10E3/uL (0.7-3.1); Total Lymphocyte 21 % (Not Estab.); WBC Total Count 3.2 x10E3/uL (3.4-10.8)
[2025-05-06 05:16] LABS: #Basophils Less than 0.03 10x3/uL (0.0-0.2); #Eosinophils 0.26 10x3/uL (0.0-0.7); #Monocytes 0.15 10x3/uL (0.11-0.59); #Neutrophils 1.69 10x3/uL (1.40-6.50); %Basophils 0.7 % (0.0-1.0); %Eosinophils 8.8 % (0.0-10.0); %Lymphocytes 27.6 % (21.0-51.0); %Monocytes 5.1 % (0.0-10.0); %Neutrophils 57.5 % (42.0-75.0); Hematocrit 31.6 % (36.0-47.0); Hemoglobin 9.7 g/dL (12.0-16.0); Mean Corpuscular Hemoglobin 28.4 pg (27.0-31.0); Mean Corpuscular Volume 92.4 fL (78.0-98.0); Platelet Count 167 10x3/uL (130-400); Red Blood Cell (RBC) Count 3.42 mill/uL (4.20-5.40); White Blood Cell (WBC) Count 2.94 10x3/uL (4.8-10.8)
[2025-05-06 05:48] LABS: ALT (SGPT) 12 U/L (Less than 34); AST (SGOT) 19 U/L (11-34); Albumin 2.8 g/dL (3.1-4.5); Alkaline Phosphatase 62 U/L (40-110); Anion Gap 9 mmol/L (10-20); BUN (Urea Nitrogen) 9 mg/dL (7.0-18.7); Bilirubin, Total 0.1 mg/dL (0.3-1.2); Calc. Creatinine Clearance 122 mL/min (70-130); Calcium 8.1 mg/dL (7.8-10.44); Carbon Dioxide 23 mmol/L (22-29); Chloride 113 mmol/L (98-107); Globulin 2.9 g/dL (2.4-3.5); Glucose 68 mg/dL (70-105); Potassium 3.7 mmol/L (3.5-5.1); Sodium 141 mmol/L (136-145)
[2025-05-06 16:35] VITALS: BP 122/74; TEMP 98.2
== END 2025-05-06 17:55 | disposition home or self-care (01) | DRG 178 ==
LOC: ERS 05:36 → ERHOLD 09:32 → OBS 14:35 → OBSVTOIN 05-04 20:17
PROVIDERS: ADMIT Family Medicine; ATTEND Internal Medicine
DX: J69.0 Pneumonitis due to inhalation of food and vomit (principal); J90 Pleural effusion, not elsewhere classified; J18.9 Pneumonia, unspecified organism; Z21 Asymptomatic human immunodeficiency virus [HIV] infection status; F32.A Depression, unspecified; F20.9 Schizophrenia, unspecified; F41.9 Anxiety disorder, unspecified; R19.7 Diarrhea, unspecified; S20.469A Insect bite (nonvenomous) of unspecified back wall of thorax, initial encounter; F39 Unspecified mood [affective] disorder; M54.9 Dorsalgia, unspecified; E87.6 Hypokalemia; Z98.890 Other specified postprocedural states; Z98.51 Tubal ligation status; Z88.8 Allergy status to other drugs, medicaments and biological substances; Z91.018 Allergy to other foods
CPT/HCPCS: 36415; 71045; 71260; 80053; 80306; 83605; 83735; 83880; 84100; 84484; 84703; 85025; 86361; 87040; 87428; 96361; 96365; 96375; 96376; G0378; J0692; J1885; J2405; J3480; Q9967

== ENCOUNTER 2025-05-20 21:51 | Emergency (ER) | payer OTHER ==
[2025-05-20] MEDS ORDERED: Ketorolac Tromethamine 30 MG (1 mL) VIAL ONE (22:37)
[2025-05-20 23:02] LABS: Hematocrit 35.6 % (36.0-47.0); Hemoglobin 11.3 g/dL (12.0-16.0); Mean Corpuscular Hemoglobin 28.7 pg (27.0-31.0); Mean Corpuscular Volume 90.4 fL (78.0-98.0); Platelet Count 177 10x3/uL (130-400); Red Blood Cell (RBC) Count 3.94 mill/uL (4.20-5.40); White Blood Cell (WBC) Count 5.18 10x3/uL (4.8-10.8)
[2025-05-20 23:21] LABS: Acetaminophen Less than 10 mcg/mL (Less than 10); Salicylate Less than 8.0 mg/dL (Less than 8.0)
[2025-05-20 23:23] LABS: Plasma Cells 1 % (0-0); Platelet Adequacy Comment Platelets Normal; Polychromasia SLIGHT = 2-3 cells HPF (0-2); Smudge Cells 29.7 %
[2025-05-21 00:13] LABS: BHCG - Serum Negative (NEGATIVE); Pregs Control Background? CLEAR/WHITE (CLR/WHITE); Pregs Control Bar Appear? YES (CONTROL BAR)
[2025-05-21 01:09] LABS: ALT (SGPT) Less than 7 U/L (Less than 34); AST (SGOT) 16 U/L (11-34); Albumin 3.1 g/dL (3.1-4.5); Alkaline Phosphatase 71 U/L (40-110); Anion Gap 13 mmol/L (10-20); BUN (Urea Nitrogen) 16 mg/dL (7.0-18.7); Bilirubin, Total 0.2 mg/dL (0.3-1.2); Calc. Creatinine Clearance 0 mL/min (70-130); Calcium 8.1 mg/dL (7.8-10.44); Carbon Dioxide 20 mmol/L (22-29); Chloride 112 mmol/L (98-107); Globulin 3.3 g/dL (2.4-3.5); Glucose 80 mg/dL (70-105); Potassium 3.6 mmol/L (3.5-5.1); Sodium 141 mmol/L (136-145)
[2025-05-21 01:49] LABS: Bacteria/HPF None Seen HPF (None Seen); CAUTI Indications for Culture Dysuria,urgency,freq; Glucose, Urine (Dipstick) Normal (Negative); Leukocyte 75 Leu/uL (Negative); Protein, Urine (Dipstick) 20 mg/dL (Neg-Trace); RBC/HPF 0-3 HPF (0-3); Specific Gravity, Urine 1.030 (1.002-1.036)
[2025-05-21 01:50] LABS: Urine Culture Reflex No No
[2025-05-21 01:54] LABS: Cocaine Metabolite Screen PRELIM POSITIVE (Negative); THC/Cannabinoid Screen Negative (Negative); Tricyclic Screen Negative (Negative)
== END 2025-05-21 02:46 | disposition home or self-care (01) ==
LOC: ERS 21:51
DX: R06.02 Shortness of breath (principal); R53.83 Other fatigue; B20 Human immunodeficiency virus [HIV] disease; F17.290 Nicotine dependence, other tobacco product, uncomplicated
CPT/HCPCS: 71045; 80053; 80306; 80307; 81001; 82962; 83605; 84703; 85025; 87428; 93005; 94760; 96374; 99285; J1885; 36416

== ENCOUNTER 2025-06-09 22:44 | Emergency (ER) | payer MEDICARE, OTHER ==
[2025-06-09 23:44] LABS: Hematocrit 37.6 % (36.0-47.0); Hemoglobin 11.7 g/dL (12.0-16.0); Mean Corpuscular Hemoglobin 29.0 pg (27.0-31.0); Mean Corpuscular Volume 93.1 fL (78.0-98.0); Platelet Count 229 10x3/uL (130-400); Red Blood Cell (RBC) Count 4.04 mill/uL (4.20-5.40); White Blood Cell (WBC) Count 4.53 10x3/uL (4.8-10.8)
[2025-06-10] LABS: ALT (SGPT) 19 U/L (Less than 34); AST (SGOT) 58 U/L (11-34); Albumin 3.7 g/dL (3.1-4.5); Alkaline Phosphatase 76 U/L (40-110); Anion Gap 13 mmol/L (10-20); BUN (Urea Nitrogen) 15 mg/dL (7.0-18.7); Bilirubin, Total 0.1 mg/dL (0.3-1.2); Calc. Creatinine Clearance 0 mL/min (70-130); Calcium 8.7 mg/dL (7.8-10.44); Carbon Dioxide 25 mmol/L (22-29); Chloride 108 mmol/L (98-107); Globulin 3.4 g/dL (2.4-3.5); Glucose 112 mg/dL (70-105); Lipase 58 U/L (8-78); Potassium 3.6 mmol/L (3.5-5.1); Sodium 142 mmol/L (136-145)
[2025-06-10 00:07] LABS: Anisocytosis SLIGHT = 6-15 cells HPF (0-5); Nucleated RBC (Manual Ct) 1 % (0); Platelet Adequacy Comment Platelets Normal
[2025-06-10] MEDS ORDERED: Lidocaine Viscous Sol 2% 15 ml UD Cup ONE (00:42)
[2025-06-10] MEDS ORDERED: Mag-Al 1200 mg/1200 mg/30 ML UDCUP ONE (00:42)
== END 2025-06-10 00:55 | disposition home or self-care (01) ==
LOC: ERS 22:44
DX: R10.13 Epigastric pain (principal); F17.290 Nicotine dependence, other tobacco product, uncomplicated; Z79.899 Other long term (current) drug therapy
CPT/HCPCS: 80053; 83690; 85025; 96374